=== PATIENT | female | born 1965 | race Caucasian/White ===

== ENCOUNTER → 2021-05-01 16:08 | Outpatient (CLI) | payer OTHER, SELFPAY ==
--- NOTE | ~2021-05-01 | MM_ITS ---
EXAMINATION: MM screening cordell BI w marco antonio HISTORY: Screening mammogram TECHNIQUE: Craniocaudal and mediolateral oblique 3-D tomosynthesis images were obtained and synthetic 2-D images were generated. CAD analysis was submitted and interpreted. COMPARISON: No prior mammogram is available for comparison at this institution. BREAST PARENCHYMAL COMPOSITION: The breasts are heterogeneously dense, which may obscure small masses . FINDINGS: There are indeterminate microcalcifications of the right breast. Diagnostic right mammogram is recommended with magnification views. No suspicious mass or architectural distortion is evident. No skin thickening or retraction. There ar e occasional benign calcifications on the left. IMPRESSION: 1. Multiple indeterminate microcalcifications of right breast 2. Diagnostic right mammogram with magnification views is recommended, with ultrasound if required BI-RADS Category 0: Incomplete: Needs additional imaging evaluation. Reviewed, dictated and finalized at location A. IMPRESSION: 1. Multiple indeterminate microcalcifications of right breast 2. Diagnostic right mammogram with magnification views is recommended, with ult rasound if required BI-RADS Category 0: Incomplete: Needs additional imaging evaluation.
== END ==
PROVIDERS: PCP Student in an Organized Health Care Education/Training Program; Visit Provider Student in an Organized Health Care Education/Training Program
DX: Z12.31 Encounter for screening mammogram for malignant neoplasm of breast (principal); R92.8 Other abnormal and inconclusive findings on diagnostic imaging of breast
CPT/HCPCS: 77063; 77067

== ENCOUNTER 2021-05-12 14:27 | Outpatient (CLI) | payer OTHER, SELFPAY ==
--- NOTE | ~2021-05-12 | MMUS_ITS ---
EXAMINATION: MM diagnostic mammo unilat RT, US breast RT complete HISTORY: New indeterminate right breast microcalcifications noted on 05/01/2021 screening mammogram TECHNIQUE: Additional ML view of right breast and magnification views of the right breast in ML, MLO and craniocaudal projections. CAD analysis was submitted and interpreted. High resolution complete [facility] breast ultrasound was performed. COMPARISON: 05/01/2021 bilateral digital screening mammogram FINDINGS: MAMMOGRAPHIC FINDINGS: There is an at least 2.3 cm linear array of granular appearing microcalcifications extending cephalad from the medial subareolar region. Stereotactic biopsy is recommended. Another linear array of microcalcifications is noted in the posterior outer right breast. Stereotacti c biopsy is recommended. ULTRASOUND: 9:00 8 cm from nipple: There is an irregular antiparallel approximately 7 mm wide up to 8.5 mm deep h ypoechoic area with prominent posterior shadowing, suspicious for malignancy. Ultrasound-guided biops y is recommended. There is dense fibroglandular tissue with shadowing at 10:00 7 cm and 8.5 cm from the nipple without discrete identifiable mass. Dense fibroglandular tissue is noted in this area on the current and prio r mammograms. IMPRESSION: 1. Suspicious linear arrays of microcalcifications in the (A) medial subareolar area, extending into the inner aspect of the upper inner quadrant of the right breast and (B) posterior upper outer right breast. Stereotactic biopsy of these 2 areas is recommended. 2. Irregular shadowing approximately 7 x 8.5 mm anti-parallel mass at 10:00 7 cm from nipple Ultraso und guided biopsy is recommended. BI-RADS category 4, suspicious findings. Reviewed, dictated and finalized at location A. IMPRESSION: 1. Suspicious linear arrays of microcalcifications in the (A) medial subareolar area, extending into the inner aspect of the upper inner quadrant of the right breast and (B) posterior upper outer right breast. Stereotactic biopsy of the se 2 areas is recommended. 2. Irregular shadowing approximately 7 x 8.5 mm anti-parallel mass at 10:00 7 c m from nipple Ultrasound guided biopsy is recommended. BI-RADS category 4, suspicious findings.
== END 2021-05-12 14:28 ==
LOC: MICIMG 14:28
PROVIDERS: PCP Student in an Organized Health Care Education/Training Program; Visit Provider Student in an Organized Health Care Education/Training Program
DX: R92.8 Other abnormal and inconclusive findings on diagnostic imaging of breast (principal)
CPT/HCPCS: 76641; 77065

== ENCOUNTER 2023-08-13 23:01 | Emergency (ER) | payer BC, SELFPAY ==
[2023-08-13 23:09] VITALS: BP 133/75; PULSE 77; RESP 18; TEMP 36; O2SAT 97
--- NOTE | 2023-08-13 23:40 | ED.WOUNDLAC ---
HPI - Wound/Laceration General Chief Complaint: Wound/Laceration Stated Complaint: ear laceration Time Seen by Provider: 08/13/23 23:26 Source: patient Mode of arrival: ambulatory Limitations: no limitations History of Present Illness HPI narrative: This is a 58-year-old female that presents to the emergency department after a fall today with lacerations to her right ear and elbow. Reports slipping and falling and hitting her head on a door frame. Reports landing on her right elbow. She did not lose consciousness. He denies any vision changes, vomiting or numbness. Her last tetanus vaccine was within 5 years. She is not on anticoagulation. Related Data Allergies Allergy/AdvReac Type Severity Reaction Status Date / Time NKDA Allergy Unknown Other Uncoded 08/13/23 23:01 Review of Systems Review of Systems: CONSTITUTIONAL: Denies fever EYES: Denies visual changes GASTROINTESTINAL: Denies vomiting SKIN: Reports laceration NEUROLOGIC: Denies headache, numbness, or weakness. All systems reviewed & are unremarkable except as noted in HPI and below PMFSH Past Medical History Medical History (Updated 08/14/23 @ 01:30 by Gabby Gomes PA-C) History of basal cell carcinoma Social History Social History (Updated 08/14/23 @ 01:30 by Gabby Gomes PA-C) Substance use: never Exam Narrative: GENERAL: Well-appearing, well-nourished, and in no acute distress. HEAD: Normocephalic. 1cm linear laceration into subcutaneous tissue to the right external ear EYES: PERRLA and EOMI. ENT: Nares clear, no rhinorrhea or epistaxis. Mucous membranes moist. Oropharynx without tonsillar hypertrophy exudate or other lesions. Bilateral TMs pearly browne non-bulging NECK: Supple. No adenopathy or masses. No midline spinal tenderness CHEST: Clear to auscultation. No respiratory distress. No wheezes rales or rhonchi HEART: Regular rate and rhythm. No murmur heard. Normal peripheral pulses. EXTREMITIES: Normal range of motion. No edema or obvious deformity. Strength equal in bilateral upper and lower extremities (5/5). 2cm flap laceration to the right elbow into subcutaneous tissue SKIN: Warm, dry, no rash. NEURO: No focal deficits. Alert and oriented x3. Cranial nerves II through XII grossly intact PSYCH: Normal mood and affect Course Course Emergency Course: Patient was educated on wound care Vital Signs Vital signs: Vital Signs Temperature 96.8 F L 08/13/23 23:09 Pulse Rate 77 08/13/23 23:09 Respiratory Rate 18 08/13/23 23:09 Blood Pressure 133/75 08/13/23 23:09 Pulse Oximetry 97 08/13/23 23:09 Oxygen Delivery Room Air 08/13/23 23:09 Temperature 96.8 F L 08/13/23 23:09 Pulse Rate 77 08/13/23 23:09 Respiratory Rate 18 08/13/23 23:09 Blood Pressure 133/75 08/13/23 23:09 Pulse Oximetry 97 08/13/23 23:09 Oxygen Delivery Room Air 08/13/23 23:09 MDM - Wound/Laceration MDM Narrative Medical decision making narrative: Patient presents to the emergency department after a fall today with lacerations of her right ear and elbow. She is neurologically intact. She denies any vision changes, vomiting or numbness. She is not on any anticoagulation. Her lacerations were cleansed and closed with sutures. She was educated on wound care. She is up-to-date on tetanus. She is to follow-up with primary provider and I will also give her follow-up with ENT for the laceration of her external ear. She was given warnings to return to the ER Differential Diagnosis Differential diagnosis: Likely laceration, abrasion and other (Head injury, concussion) Critical Care Time Critical Care Time Critical Care Time: No Discharge Plan Discharge Clinical Impression: Laceration Fall Qualifiers: Encounter type: initial encounter Qualified Code(s): W19.XXXA - Unspecified fall, initial encounter Head injury Qualifiers: Encounter type: initial encounter Qualified Code(s): S09.90XA - Unspecified
[2023-08-14] MEDS: LIDOCAINE HCL 1% LOCAL INJ 10 ML VIAL 20 ML INFILTRATE (00:19)
== END 2023-08-14 01:35 | disposition home or self-care (01) ==
PROVIDERS: Emergency Provider Physician Assistant; PCP Student in an Organized Health Care Education/Training Program
DX: S01.311A Laceration without foreign body of right ear, initial encounter (principal); S51.011A Laceration without foreign body of right elbow, initial encounter; Z85.828 Personal history of other malignant neoplasm of skin; W01.198A Fall on same level from slipping, tripping and stumbling with subsequent striking against other object, initial encounter
CPT/HCPCS: 12001; 12011; 99282

== ENCOUNTER 2024-10-27 07:25 | Outpatient (CLI) | payer BC, SELFPAY ==
--- NOTE | ~2024-10-27 | US_ITS ---
EXAMINATION: US abdomen limited DATE: 10/27/2024 07:53 INDICATION: Left upper quadrant abdominal pain. TECHNIQUE: Multiple grayscale and Doppler ultrasound images of the abdomen were obtained. COMPARISON: None FINDINGS: The spleen is normal in size. The left kidney is normal in size. No left hydronephrosis. IMPRESSION: 1. Normal spleen and left kidney. Reviewed, dictated and finalized at location A. [employer]
== END 2024-10-27 07:26 | disposition home or self-care (01) ==
LOC: MICIMG 07:27
PROVIDERS: PCP Student in an Organized Health Care Education/Training Program; Visit Provider Student in an Organized Health Care Education/Training Program
DX: R10.12 Left upper quadrant pain (principal)
CPT/HCPCS: 76705

== ENCOUNTER 2025-07-25 16:28 | Emergency (ER) | payer BC, SELFPAY ==
--- OUTSIDE RECORDS SUMMARY | 2025-07-24 08:15 | XMS_ITS | Encounter Summary ---
Author Organization [facility] Healthcare Address [address] [place] [address] Care Team Providers Care Clinical Research Associate Name Role Phone Keshav Spears DO Primary Care Provide r Keshav Spears DO Unavailable [phone] Felix Simmons MD Unavailable [phone] Reason for Visit * Episode Based Medications (Routine) - Authorized Specialty Diagnoses / Procedures Referred By Contjoleen t Referred To Contact Diagnoses Pancreatic adenocarcinoma (HCC) Prophylaxis for chemotherapy-induced neutropenia Felix Simmons MD [address] [place] [address] Phone: tel: fax: Felix Simmons MD [address] [place] [address] Phone: tel: fax: Referral ID Status Reason Start Date Expiration Date V isits Requested Visits Authorized [id number] Authorized 02/06/2025 11/09/2025 1 72 Encounter Details Date Type Department Care Team (Latest Contact Info) Description 07/24/2025 8:15 AM CDT Clinical Support [facility] - Lab Collection [address] [facility] [address] [place] [address] Pancreatic adenocarcinoma (HCC); Prophylaxis for chemotherapy-induced neutropenia Social History Tobacco Use Types Packs/Day Years Used Date Smoking Tobacco: Never Alcohol Use Standard Drinks/Week Comments Yes 2 (1 standard drink = 0.6 oz pur e alcohol) socially AUDIT-C Answer Date Recorded Q1: How often do you have a drink containing alc ohol? 2-3 times a week 07/11/2025 Q2: How many drinks containi ng alcohol do you have on a typical day when you are drinking? 1 or 2 07/11/2025 Frequency of Binge Drinking Not on file 06/22 Personal Safety Answer Date Recorded Have you ever been in or are you currently in a harmful physical or emotional relationship or is someone making you feel afraid or unsafe? 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 Gender Identity Not on file Sexual Orientation Not on file documented as of this encounter Plan of Treatment Not on file documented as of this encounter Procedures Procedure Name Priority Date/Time Associated Diagnosis Comments EGFR STAT 07/24/2025 8:39 AM CDT Pancreatic adenocarcinoma (HCC) Prophylaxis for chemotherapy-induced neutropenia DIFFERENTIAL AUTO Routine 07/24/2025 8:3 9 AM CDT Pancreatic adenocarcinoma (HCC) Prophylaxis for chemotherapy-induced neutropenia CBC WITH AUTO DIFFERENTIAL Routine 07/24/2025 8:39 AM CDT Pancreatic adenocarcinoma (HCC) Prophylaxis for chemotherapy-induced neutropenia CANCER ANTIGEN 19-9 Routine 07/24/2025 8 :39 AM CDT Pancreatic adenocarcinoma (HCC) Prophylaxis for chemotherapy-induced neutropenia COMPREHENSIVE METABOLIC PANEL STAT 07/24/2025 8:39 AM CDT Pancreatic adenocarcinoma (HCC) Prophylaxis for chemotherapy-induced neutropenia documented in this encounter Results * eGFR (07/24/2025 8:39 AM CDT) eGFR >90 >=60 mL/min/1. 73 m2 Comment: Interpretive Data Reference Interval Normal >/= 90 mL/min/1.73m2 Mildly decreased* 60 - 89 mL/min/1.73m2 Mildly to moderately decreased 45 - 59 mL/min/1.73m2 Moderately to severely decreased 30 - 44 mL/min/1.73m2 Severely decreased 15 - 29 mL/min/1.73m2 Kidney Failure < 15 mL/min/1.73m2 *Relative to young adult level Estimated glomerular filtration rate is determined by the 2020 CKD-EPI equation recommended by the National Kidney Foundation (A Unifying Approach to GFR Estimation: Recommendations of the NKF-ASK Task Force on Reassessing the Inclusion of Race in Diagnosing Kidney Disease, JASN 2020). The CKD-EPI equation should not be used for patients with unstable renal function and has not been validated in children and those over 70. Current interpretive data was last reviewed 2021. Blood 07/24/2025 8:39 AM CDT 07/24/2025 8:42 AM CDT Felix Simmons MD LAB BLOOD ORDERABLES Final Result [facility] [place] [address] * Differential, auto (07/24/2025 8:39 AM CDT) Neutrophil abs 4.53 1.50 - 6.50 K/cumm Comment:Testing performed by : [facility], [address] [place], [place] [phone] Lymphocyte abs 1.89 0.80 - 3.30 K/cumm [facility] Comment:Testing performed by : [facility], [address] [place] [address] Monocyte abs 0.79 0.20 - 0.80 K/cumm [facility] Comment:Testing performed by : [facility], [address] [place] [address] Eosinophil abs 0.13 0.00 - 0.50 K/cumm [facility] Comment:Testing performed by : [facility], [address] [place] [phone] Basophil abs 0.07 0.00 - 0.10 K/cumm [facility] Comment:Testing performed by : [facility], [address] [place] [phone] Neutrophil pct 61.1 % [facility] Comment: Interpretive Data Percent cell count reference ranges are not reported, since discordance with absolute values may lead to misinterpretation of CBC data. Current Interpretive Data was last revised on 2018. Testing performed by: [facility], [address] [place] [phone] Lymphocyte pct 25.5 % [facility] Comment: Interpretive Data Percent cell count reference ranges are not reported, since discordance with absolute values may lead to misinterpretation of CBC data. Current Interpretive Data was last revised on 2018. Testing performed by: [facility], [address] [place] [phone] Monocyte pct 10.6 % [facility] Comment: Interpretive Data Percent cell count reference ranges are not reported, since discordance with absolute values may lead to misinterpretation of CBC data. Current Interpretive Data was last revised on 2018. Testing performed by: [facility], [address] [place] [phone] Eosinophil pct 1.8 % [facility] Comment: Interpretive Data Percent cell count reference ranges are not reported, since discordance with absolute values may lead to misinterpretation of CBC data. Current Interpretive Data was last revised on 2018. Testing performed by: [facility], [address] [place] [phone] Basophil pct 0.9 % [facility] Comment: Interpretive Data Percent cell count reference ranges are not reported, since discordance with absolute values may lead to misinterpretation of CBC data. Current Interpretive Data was last revised on 2018. Testing performed by: [facility], [address] [place] [phone] Blood 07/24/2025 8:39 AM CDT 07/24/2025 8:41 AM CDT us Felix Simmons MD LAB BLOOD ORDERABLES Final Result Performing Organization Address City/[facility] Co de Phone Number [facility] [place] [address] * (ABNORMAL) Cancer antigen 19-9 (07/24/2025 8:39 AM CDT) CA 19-9 ag 39.1(H) <=35.0 units/mL Comment: Interpretive Data The [employer] CA 19-9 assay procedure was used. Results from different manufacturers or methods may not be comparable. Serial testing should be performed using the same method. Blood 07/24/2025 8:39 AM CDT 07/24/2025 9:00 AM CDT Felix Simmons MD LAB BLOOD ORDERABLES Final Result Performing Organization Address [facility] [place] [facility] Co de Phone Number [facility] [place] [address] * (ABNORMAL) CBC with auto differential (07/24/2025 8:39 AM CDT) WBC 7.41 3.80 - 9.90 K/cumm Comment:Testing performed by : [facility], [address] [place] [address] Hgb 11.7(L) 11.9 - 15.5 g/dL [facility] Comment:Testing performed by : [facility], [address] [place] [address] Hct 34.5(L) 35.6 - 45.5 % [facility] Comment:Testing performed by : [facility], [address] [place] [address] Plt 370 150 - 400 K/cumm [facility] Comment:Testing performed by : [facility], [address] [place] [address] MPV 6.9 6.8 - 10.4 fL [facility] Comment:Testing performed by : [facility], [address] [place] [address] RBC 3.91 3.90 - 5.20 M/cumm [facility] Comment:Testing performed by : [facility], [address] [place] [address] MCV 88.2 81.3 - 96.4 fL [facility] Comment:Testing performed by : [facility], [address] [place], [place] [phone] MCH 30.0 27.1 - 33.3 pg [facility] Comment:Testing performed by : [facility], [address] [place] [address] MCHC 34.0 32.3 - 35.7 g/dL [facility] Comment:Testing performed by : [facility], [address] [place] [address] RDW CV 18.3(H) 11.1 - 14.9 % [facility] Comment:Testing performed by : [facility], [address] [place] [address] NRBC abs 0.00 0.00 - 0.01 K/cumm [facility] Comment:Testing performed by : [facility], [address] [place] [address] Blood 07/24/2025 8:39 AM CDT 07/24/2025 8:41 AM CDT Felix Simmons MD LAB BLOOD ORDERABLES Final Result [facility] [place] [address] * Comprehensive metabolic panel (07/24/2025 8:39 AM CDT) Sodium 139 135 - 145 mmol/L Potassium, pl 4.2 3.3 - 4.9 mmol/L [facility] Chloride 103 97 - 110 mmol/L [facility] CO2 27 22 - 32 mmol/L [facility] Anion gap 9 2 - 15 mmol/L [facility] BUN 15 6 - 25 mg/dL [facility] Creatinine 0.66 0.60 - 1.10 mg/dL [facility] Glucose 109 70 - 199 mg/dL [facility] Comment: Interpretive Data Fasting glucose >/= 126 mg/dl is diagnostic for diabetes. Fasting is defined as no caloric intake for at least 8 hours. Fasting glucose between 100 mg/dl to 125 mg/dl is diagnostic of prediabetes. In a patient with classic symptoms of hyperglycemia or hyperglycemic crisis, a random glucose >/= 200 mg/dl is diagnostic for diabetes. In the absence of unequivocal hyperglycemia, results should be confirmed by repeat testing. The classification and Diagnosis of Diabetes Diabetes Care 2021; 46: S19-S40. Current interpretive data was last revised 2022. Calcium 9.5 8.5 - 10.3 mg/dL [facility] Bilirubin, total 0.5 0.1 - 1.2 mg/dL [facility] Protein, pl 7.0 6.5 - 8.5 g/dL [facility] Albumin 3.9 3.5 - 5.0 g/dL [facility] Alk phos 90 40 - 130 Units/L [facility] ALT 26 7 - 45 Units/L [facility] AST 22 10 - 45 Units/L [facility] Blood 07/24/2025 8:39 AM CDT 07/24/2025 8:42 AM CDT Felix Simmons MD LAB BLOOD ORDERABLES Final Result Performing Organization Address City/State/[facility] Co de Phone Number [facility] [place] [address] documented in this encounter Visit Diagnoses Diagnosis Pancreatic adenocarcinoma (HCC) Malignant neoplasm of pancreas, part unspecified Prophylaxis for chemotherapy-induced neutropenia documented in this encounter Orders Appointment Requests Count Last Ordered Date Fi rst Ordered Date ONCBCN LAB APPOINTMENT 1 07/24/2025 documented in this encounter Care Teams Clinical Research Associate Relationship Specialty Start Date End Date Keshav Spears DO [address] [place] [id number] PCP - General Family Medicine 11/01/24 Keshav Spears DO [address] [place] [address] 10/31/24 Felix Simmons MD [address] [facility] [address] [place] [address] Consulting Physician Medical Oncology 11/28/24 documented as of this encounter
--- OUTSIDE RECORDS SUMMARY | 2025-07-24 09:20 | XMS_ITS | Encounter Summary ---
Author Organization [facility] Address [address] [place] [address] Phone Care Team Providers Care Program Coordinator For Residence Life Name Role Phone Keshav Spears DO Primary Care Provide r Keshav Spears DO Unavailable Felix Simmons MD Unavailable Encounter Details Date Type Department Care Team (Latest Contact Info) Description 07/24/2025 9:20 AM CDT Office Visit [facility] Medicine Oncology [address] 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 Gender Identity Not on file Sexual Orientation Not on file documented as of this encounter Last Filed Vital Signs Vital Sign Reading Time Taken Comments Blood Pressure 120/78 07/24/2025 9:08 AM CDT Pulse 68 07/24/2025 9:08 AM CDT Temperature 36.1 C (96.9 F) 07/24/2025 9:08 AM CDT Respiratory Rate 14 07/24/2025 9:08 AM CDT Oxygen Saturation 98% 07/24/2025 9:08 AM CDT Inhaled Oxygen Concentration - - Weight 78.1 kg (172 lb 3.2 oz) 07/24/2025 9:08 A M CDT Height - - Body Mass Index 26.97 07/11/2025 8:54 AM CDT documented in this encounter Plan of Treatment Scheduled Orders Name Type Priority Associated Diagnoses Orde r Schedule CBC with auto differential Lab Routine Pancreatic adenocarcinoma (HCC) Prophylaxis for chemotherapy-induced neutropenia Expected: 08/07/2025, Expires: 08/07/2026 Comprehensive metabolic panel Lab STAT Pancreatic adenocarcinoma (HCC) Prophylaxis for chemotherapy-induced neutropenia Expected: 08/07/2025, Expires: 08/07/2026 documented as of this encounter Visit Diagnoses Diagnosis Pancreatic adenocarcinoma (HCC)- Primary Malignant neoplasm of pancreas, part unspecified Prophylaxis for chemotherapy-induced neutropenia documented in this encounter Orders Appointment Requests Count Last Ordered Date Fi rst Ordered Date ONCBCN CLINIC APPOINTMENT REQUEST 2 025 ONCBCN LAB APPOINTMENT 1 07/24/2025 ONCBCN RETURN CHEMO 2HRS 1 07/24/2025 documented in this encounter Care Teams Program Coordinator For Residence Life Relationship Specialty Start Date End Date Keshav Spears DO [address] [place] [id number] PCP - General Family Medicine 11/01/24 Keshav Spears DO [address] [place] [address] 10/31/24 Felix Simmons MD [address] [place] [address] Consulting Physician Medical Oncology 11/28/24 documented as of this encounter
--- OUTSIDE RECORDS SUMMARY | 2025-07-24 10:30 | XMS_ITS | Encounter Summary ---
Author Organization [facility] Healthcare Address [address] [place] [address] Care Team Providers Care Assembler Aircraft Power Plant Name Role Phone Keshav Spears DO Primary Care Provide r Keshav Spears DO Unavailable [phone] Felix Simmons MD Unavailable [phone] Reason for Visit * Episode Based Medications (Routine) - Authorized Specialty Diagnoses / Procedures Referred By Contjoleen t Referred To Contact Diagnoses Pancreatic adenocarcinoma (HCC) Prophylaxis for chemotherapy-induced neutropenia Felix Simmons MD [address] [place] [address] Phone: tel: fax: Felix Simmons MD [address] [place] [address] Phone: tel: fax: Referral ID Status Reason Start Date Expiration Date V isits Requested Visits Authorized [id number] Authorized 02/06/2025 11/09/2025 1 72 Encounter Details Date Type Department Care Team (Late st Contact Info) Description 07/24/2025 10:30 AM CDT Infusion [facility] - Infusion [address] [facility] [address] [place] [address] Pancreatic adenocarcinoma (HCC) (Primary Dx); Prophylaxis for [...] on file Legal Sex Female 1:13 PM VP DESIGN Gender Identity Not on file Sexual Orientation Not on file documented as of this encounter Nursing Notes * Kaley Barry RN - 07/24/2025 10:30 AM CDT Oncology Nursing Note [facility] - INFUSION Edy Tang is a 60 y.o. female who presents for treatment cycle 6, day 1 of gemcitabine/abraxane. Pre-treatment Nursing Assessment Nursing Assessment LOC: Alert, Awake Fatigue: None Any falls since your last visit?: No Orientation: Oriented x4 Behavior: Calm Speech: Clear Language: No aphasia Vision: At baseline Peripheral Neuropathy: Yes (unchanged) Oral Mucosa Grade: Normal (0) Pt states has potential to be ?: No Shortness of Breath?: No Cough: Absent Appetite: Good Nausea/Vomiting: Yes Abdomen: Soft Diarrhea: No Constipation: No Last BM Date: 07/23/25 Skin Condition/Temp: Warm, Dry Swelling: No Additional Notes: Encounter Vitals BP: 120/78 (07/24/2025 9:08 AM) Pulse: 68 (07/24/2025 9:08 AM) Resp: 14 (07/24/2025 9:08 AM) Temp: 36.1 ??C (96.9 ??F) (07/24/2025 9:08 AM) SpO2: 98 % (07/24/2025 9:08 AM) Weight: 78.1 kg (172 lb 3.2 oz) (07/24/2025 9:08 AM) Pain Score: 0 - No pain Treatment Patient: met treatment parameters Pre blood return: Chema Tang tolerated treatment well. Patient was frequently observed and monitored throughout the administration of their treatment. Additional Notes: NO infusion reaction noted. Port de-accessed. Discharged in stable condition Post blood return: Brisk IV access post infusion: NS Patient Education Treatment Education: Information/teaching given to patient including fall prevention, pain, signs and symptoms of infection, adverse reaction, symptom management, process and procedure related to today's visit, and when to notify MD Response: Verbalizes understanding Discharge Plan Discharge instructions given to patient. Future appointments given and reviewed with treatment plan. Discharge Mode: Ambulatory Accompanied by: Self Discharged To: Home documented in this encounter Plan of Treatment Not on file documented as of this encounter Visit Diagnoses Diagnosis Pancreatic adenocarcinoma (HCC)- Primary Malignant neoplasm of pancreas, part unspecified Prophylaxis for chemotherapy-induced neutropenia documented in this encounter Administered Medications Inactive Administered Medications - up to 3 most recent administrations Medication Order MAR Action Action Date Dose Rate Site albumin-bound PACLItaxel (ABRAXANE) 5 mg/mL IVPB in empty container 245 mg 245 mg (rounded from 243.75 mg = 125 mg/m2 1.95 m2 Treatment Plan BSA from Recorded weight), intravenous, at 98 mL/hr, Administer over 30 Minutes, Once, On Tue07/24/25 at 1230, For 1 dose, Irritant. Do NOT use a filter during administration. Irritant with vesicant propertiesIndications:Panc reatic adenocarcinoma (HCC),Prophylaxis for chemotherapy-induced neutropenia New Bag 07/24/2025 1:24 PM CDT 245 mg 98 mL/hr dexAMETHasone (DECADRON) preservative free solution 10 mg 10 mg, intravenous, Administer over 2 Minutes, Once, On Tue07/24/25 at 1200, For 1 doseIndications:Pancreatic adenocarcinoma (HCC),Prophylaxis for chemotherapy-induced neutropenia Given 07/24/2025 11:51 AM CDT 10 mg gemcitabine (GEMZAR - J9201) 1,950 mg in sodium chloride 0.9% 250 mL IVPB 1,950 mg (1,000 mg/m2 1.95 m2 Treatment Plan BSA from Recorded weight), intravenous, at 653 mL/hr, Administer over 30 Minutes, Once, On Tue07/24/25 at 1300, For 1 doseIndications:Pancreatic adenocarcinoma (HCC),Prophylaxis for chemotherapy-induced neutropenia New Bag 07/24/2025 2:10 PM CDT 1,950 mg 653 mL/hr ondansetron (ZOFRAN) 16 mg/58 mL in sodium chloride 0.9% (premix) 16 mg 16 mg, intravenous, at 232 mL/hr, Administer over 15 Minutes, Once, On Tue07/24/25 at 1200, For 1 doseIndications:Pancreatic adenocarcinoma (HCC),Prophylaxis for chemotherapy-induced neutropenia New Bag 07/24/2025 12:03 PM CDT 16 mg 232 mL/hr sodium chloride 0.9% bolus 1,000 mL 1,000 mL, intravenous, at 999 mL/hr, Administer over 1 Hours, Once, On Tue07/24/25 at 1200, For 1 dose, May insert peripheral IV (see IV maintenance therapy plan) to administer NS concurrently with chemo if necessaryIndications:Pancr eatic adenocarcinoma (HCC),Prophylaxis for chemotherapy-induced neutropenia New Bag 07/24/2025 12:19 PM CDT 1,000 mL 999 mL/hr sodium chloride 0.9% infusion 20 mL/hr, intravenous, As needed, As needed as back up fluid for infusions, Starting on Tue07/24/25 at 1111Indications:Pancreatic adenocarcinoma (HCC) Rate/Dose Change 07/24/2025 2:41 PM CDT 653 mL/hr Rate/Dose Change 07/24/2025 1:55 PM CDT 98 mL/h r Restarted 07/24/2025 12:02 PM CDT 20 mL/hr documented in this encounter Orders Nursing Count Last Ordered Date First Orde red Date ONCBCN TREATMENT PARAMETERS 1 07/24/2025 Appointment Requests Count Last Ordered Date Fi rst Ordered Date ONCBCN RETURN CHEMO 2HRS 1 07/24/2025 documented in this encounter Care Teams Assembler Aircraft Power Plant Relationship Specialty Start Date End Date Keshav Spears DO [address] [place] [address] [id number] PCP - General Family Medicine 11/01/24 Keshav Spears DO [address] [place] [address] 10/31/24 Felix Simmons MD [address] [facility] [address] [place] [address] Consulting Physician Medical Oncology 11/28/24 documented as of this encounter
--- NOTE | ~2025-07-25 | XR_ITS ---
XR toe 2nd LT min 2V 07/25/2025 16:54 INDICATION: Left second toe pain after trauma PROCEDURE: 3 views left second toe COMPARISON: No prior studies for comparison. FINDINGS: Fracture, dislocation or subluxation is not identified. Study performed with overlying gauze limiting evaluation of bone detail. The soft tissues appear within normal limits. No foreign bodies are identified. IMPRESSION: 1: NO ACUTE BONE OR JOINT ABNORMALITY IDENTIFIED. Reviewed, dictated and finalized at location O.
[2025-07-25 16:32] VITALS: BP 122/63; PULSE 68; RESP 15; TEMP 36.4; O2SAT 100
--- NOTE | 2025-07-25 16:47 | ED.GENADULT ---
HPI - General Adult General Chief complaint: Wound/Laceration Stated complaint: L 2nd toe lac Time Seen by Provider: 07/25/25 16:30 History of Present Illness HPI narrative: 60-year-old female presenting with a toe injury. She dropped a note for and on the 2nd toe of her left foot. She has had significant bleeding on site but is now controlled. Tetanus is up-to-date. No other injuries. Related Data Allergies Allergy/AdvReac Type Severity Reaction Status Date / Time irinotecan Allergy Swelling Verified 07/25/25 16:40 of Lip/Tongue/Throat PMFSH Past Medical History Medical History (Updated 07/25/25 @ 17:39 by Anthony Berg MD) History of basal cell carcinoma Social History Social History (Updated 08/14/23 @ 01:30 by Gabby Gomes PA-C) Substance use: never Exam Narrative: APPEARANCE: No apparent distress. Head: atraumatic. EYES: EOMI, NOSE: Atraumatic NECK: Trachea midline RESPIRATORY: No increased rate of breathing clear CARDIOVASCULAR: RRR, ABDOMINAL: Non-distended MUSCULOSKELETAl: Focal exam of the left 2nd toe revealed a flap laceration over the distal lateral portion of the toe involving the nail bed NEURO: Alert. Moving 4/4 extremities SKIN:: Warm, dry. Normal color PSYCHIATRIC: Normal affect Course Vital Signs Vital signs: Vital Signs Temperature 97.5 F L 07/25/25 16:32 Pulse Rate 68 07/25/25 16:32 Respiratory Rate 15 07/25/25 16:32 Blood Pressure 122/63 07/25/25 16:32 Pulse Oximetry 100 07/25/25 16:32 Oxygen Delivery Room Air 07/25/25 16:32 Temperature 97.5 F L 07/25/25 16:32 Pulse Rate 68 07/25/25 16:32 Respiratory Rate 15 07/25/25 16:32 Blood Pressure 122/63 07/25/25 16:32 Pulse Oximetry 100 07/25/25 16:32 Oxygen Delivery Room Air 07/25/25 16:32 Procedures Laceration Laceration 1: Date: 07/25/25 Site: lower extremity Side (If applicable): left Size (cm): 1.5 Description: flap Depth: simple, single layer Amount of anesthesia used (mL): 5 Pre-repair: wound explored and irrigated extensively ====== Skin Level ====== Skin layer closed with: dermabond ====== Subcutaneous Layer ====== ====== Muscle Layer ====== ====== Tendon Layer ====== Medical Decision Making MDM Narrative Medical decision making narrative: -Course: 60-year-old female presenting with toe injury. X-ray negative fracture. Wound was anesthetized with a nerve block and then flushed with copious amounts of irrigation. Repaired with Dermabond. Patient be discharged with primary care follow-up. -DDX includes but is not limited to: Soft tissue injury, bony injury Vital Signs Vital Signs: Vital Signs Temperature 97.5 F L 07/25/25 16:32 Pulse Rate 68 07/25/25 16:32 Respiratory Rate 15 07/25/25 16:32 Blood Pressure 122/63 07/25/25 16:32 Pulse Oximetry 100 07/25/25 16:32 Oxygen Delivery Room Air 07/25/25 16:32 Temperature 97.5 F L 07/25/25 16:32 Pulse Rate 68 07/25/25 16:32 Respiratory Rate 15 07/25/25 16:32 Blood Pressure 122/63 07/25/25 16:32 Pulse Oximetry 100 07/25/25 16:32 Oxygen Delivery Room Air 07/25/25 16:32 Discharge Plan Discharge Clinical Impression: Laceration Patient Disposition: Home Condition: Stable Instructions: Antibiotic Form, Laceration (ED) Additional Instructions: You were seen in the emergency department for a toe laceration. This was repaired with Dermabond. The Dermabond should come off on its own in 5-7 days. Please follow-up with your primary care physician for further management. If you develop signs of infection like severe pain, increased redness or purulent discharge please return to the ED for re-evaluation. Use [id number] Motrin Tylenol for pain control. Patient Language: Telugu Follow-up/Referrals: Regan,DO Keshav [Primary Care Provider] - 1 Week
--- OUTSIDE RECORDS SUMMARY | 2025-07-25 17:45 | XMS_ITS | Encounter Summary ---
Author Organization [facility] Address [address] [place] [address] Care Team Providers Care Tank Car Cleaner Name Role Phone Keshav Spears Primary Care Provider + Encounter Details Date Type Department Care Team (Late st Contact Info) Description 12/23/2022 [facility] Patient Accounts [address] [place] [address] Hannah, [facility] Provider Monthly Credit Card Payment Social History Tobacco Use Types Packs/Day Years Used Date Smoking Tobacco: Never Smokeless Tobacco: Never Alcohol Use Standard Drinks/Week Comments Yes 3.3 (1 standard drink = 0.6 oz p ure alcohol) AUDIT-C Answer Date Recorded Frequency of Alcohol Consumption 2-4 times a tue01/03/2020 Average Number of Drinks 1 or 2 020 Frequency of Binge Drinking Less than monthly PHQ-2 Answer Date Recorded PHQ-2 Score - If the patient scores above 3, please move on to questions 3-9 2 06/10/2022 Comments No Sex and Gender Information Value Date Recorded Sex Assigned at Female 10/24/2024 1:30 PM COMPUTER SUPPORT TECHNICIAN Legal Sex Female 12:10 PM COMPUTER SUPPORT TECHNICIAN Gender Identity Female 10/24/2024 1:30 PM COMPUTER SUPPORT TECHNICIAN Sexual Orientation Not on file Occupation Industry Job Start Date Job End Date Not on file Not on file Not on file Not on file documented as of this encounter Plan of Treatment Not on file documented as of this encounter Visit Diagnoses Not on filedocumented in this encounter Additional Health Concerns Infection Onset Date Last Indicated Resolved Time COVID-19 Rule Out 09/12/2024 09/12/2024 09/12/2024 2:47 PM CDT Assessment Noted Time PHQ-9 Depression Total Score: 7 01/03/20 20 8:40 AM COMPUTER SUPPORT TECHNICIAN documented as of this encounter Care Teams Tank Car Cleaner Relationship Specialty Start Date End Date Keshav Spears DO [address] [place] [id number] PCP - General FAMILY PRACTICE 12/11/19 documented as of this encounter
--- OUTSIDE RECORDS SUMMARY | 2025-07-25 17:45 | XMS_ITS | Encounter Summary ---
Author Organization [facility] Address [address] [place] [address] Care Team Providers Care Office Helper Clerical Name Role Phone Keshav Spears DO Primary Care Provider + Encounter Details Date Type Department Care Team (Late st Contact Info) Description 04/14/2023 [facility] Patient Accounts [address] [place] [address] Hannah, [facility] Provider Monthly Payment Plan Social History Tobacco Use Types Packs/Day Years [...] Sex Assigned at Female 10/24/2024 1:30 PM SLUSHER OPERATOR Legal Sex Female 12:10 PM SLUSHER OPERATOR Gender Identity Female 10/24/2024 1:30 PM SLUSHER OPERATOR Sexual Orientation Not on file Occupation Industry [...] Total Score: 7 01/03/20 20 8:40 AM SLUSHER OPERATOR documented as of this encounter Care Teams Office Helper Clerical Relationship Specialty Start Date End Date Keshav Spears DO [address] [place] [address] PCP - General FAMILY PRACTICE 12/11/19 documented as of this encounter
--- OUTSIDE RECORDS SUMMARY | 2025-07-25 17:45 | XMS_ITS | Encounter Summary ---
Author Organization [facility] Address [address] [facility] [place] [address] Care Team Providers Care Police Shift Commander Name Role Phone Keshav Spears DO Primary Care Provider + Encounter Details Date Type Department Care Team (Late st Contact Info) Description 06/02/2022 Lab Requisition [facility] Care DermPath Lab [address] [place] [id number] Malcolm Hughes MD [address] [place] [address] Social History Tobacco Use Types Packs/Day Years Used Date Smoking Tobacco: Never Smokeless Tobacco: Never Alcohol Use Standard Drinks/Week Comments No 0 (1 standard drink = 0.6 oz pur e alcohol) Comments No Sex and Gender Information Value Date Recorded Sex Assigned at Not on file Legal Sex Female 12:53 PM CDT Gender Identity Not on file Sexual Orientation Not on file documented as of this encounter Plan of Treatment Not on file documented as of this encounter Procedures Procedure Name Priority Date/Time Associated Diagnosis Comments DERMATOPATHOLOGY Routine 2022 3:33 AM CDT documented in this encounter Results * DERMATOPATHOLOGY (2022 3:33 AM CDT) Case Report Dermatopathology Report Case: [id number] Authorizing Provider: Malcolm Hughes MD Collected: 2022 03:33 AM Ordering Location: [facility] DermPath Lab Received: 06/02/2022 12:32 PM Pathologist: Becka Santos MD Specimens: A) - Skin, right bulb of nose B) - Skin, left nasal sidewall 2 12:15 PM T DERMATOPATHOLOGY LABORATORY Final Diagnosis Specimen A. SKIN, right bulb of nose: BASAL CELL CARCINOMA, NODULAR TYPE (C44.311) (see microscopic description) Specimen B. SKIN, left nasal sidewall: BASAL CELL CARCINOMA, NODULAR TYPE (C44.311) 2 12:15 PM T DERMATOPATHOLOGY LABORATORY at 1215 CDT Clinical History A: R/O BCC, Scarring vs. Other B: R/O BCC vs. Other Neoplasm 12:15 PM CDT DERMATOPATHOLOGY LABORATORY Gross Description Specimen A: Received is one formalin filled container labeled with the patient's name and designated right bulb of nose. The specimen consists of a punch biopsy measuring [id number]. Jar 0. Specimen B: Received is one formalin filled container labeled with the patient's name and designated left nasal sidewall. The specimen consists of a shave biopsy measuring [id number]. Jar 0. 2 12:15 PM [facility] DERMATOPATHOLOGY LABORATORY Microscopic Description Specimen A. SKIN, right bulb of nose: Within the dermis there are aggregates of basaloid cells with a high nuclear to cytoplasmic ratio and peripheral palisading. By immunohistochemistr y, CK20 highlights scattered intraepidermal Darrius cells, and does not reveal intratumoral Elbe cells. BerEp4 is positive in lesional cells. Additional deeper sections were obtained and reviewed. Specimen B. SKIN, left nasal sidewall: Within the dermis there are aggregates of basaloid cells with a high nuclear to cytoplasmic ratio and peripheral palisading. 2 12:15 PM T DERMATOPATHOLOGY LABORATORY Disclaimer An external and internal positive and negative controls are appropriate for the histochemical, immunohistochemical and immunofluorescence stain(s) in this case (if any), except where stated explicitly. The performance characteristics of the stain(s) cited in this report were developed and its performance characteristic determined by the Dermatopathology Laboratory at [facility], directed by Dr. Shmuel Espinoza. These tests need not be, and therefore are not, approved by the [place] Food and Drug Administration. The tests are used for clinical purposes. Billing Codes Specimen Charges Stain Charges 51434 33578 1 1 56605 50139 1 1 2 12:15 PM CDT DERMATOPATHOLOGY LABORATORY Embedded Images 2 12:15 PM CDT DERMATOPATHOLOGY LABORATORY Pathology/Cytology TISSUE SPECIMEN FROM SKIN / Unknown 2022 3:33 AM CDT 06/02/2022 12:32 PM CDT Miscellaneous samples (specimen) TISSUE SPECIMEN FROM SKIN / Unknown 2022 3:33 AM CDT 06/02/2022 12:32 PM CDT Malcolm Hughes MD LAB - PATHOLOGY/CYTOLOGY ORD ERABLES Final Result DERMATOPATHOLOGY LABORATORY [facility] - Department of Dermatology [facility] Specialized Medicine [address] [place] [address], [address] [phone] documented in this encounter Visit Diagnoses Not on filedocumented in this encounter Care Teams Police Shift Commander Relationship Specialty Start Date End Date Keshav Spears DO [address] [place] [address] PCP - General 05/04/21 documented as of this encounter
--- OUTSIDE RECORDS SUMMARY | 2025-07-25 17:45 | XMS_ITS | Encounter Summary ---
Author Organization [facility] Healthcare Address [address] [place] [address] Care Team Providers Care Housekeeper Cleaning Cooking Name Role Phone Keshav Spears DO Primary Care Provide r Keshav Spears DO Unavailable Felix Simmons MD Unavailable Encounter Details Date Type Department Care Team (Late st Contact Info) Description 05/29/2025 Documentation [facility] Radiation Oncology [address] [facility] [place] [address] Hollie Carver RN Social History Tobacco Use Types Packs/Day Years Used Date Smoking Tobacco: Never Alcohol Use Standard Drinks/Week Comments Yes 0 (1 standard drink = 0.6 oz pur e alcohol) socially AUDIT-C Answer Date Recorded Q1: How often do you have a drink containing alc ohol? 2-4 times a month 04/16/2025 Q2: How many drinks containi ng alcohol do you have on a typical day when you are drinking? 1 or 2 04/16/2025 Q3: How often do you have si x or more drinks on one occasion? Never 04/16/2025 Personal Safety Answer Date Recorded Have you ever been in or are you currently in a harmful physical or emotional relationship or is someone making you feel afraid or unsafe? Denies 03/08/2025 Comments No Sex and Gender Information Value Date Recorded Sex Assigned at Not on file Legal Sex Female 1:13 PM APARTMENT LEASING CONSULTANT Gender Identity Not on file Sexual Orientation Not on file documented as of this encounter Plan of Treatment Not on file documented as of this encounter Visit Diagnoses Not on filedocumented in this encounter Care Teams Housekeeper Cleaning Cooking Relationship Specialty Start Date End Date Keshav Spears DO [address] [place] [id number] PCP - General Family Medicine 11/01/24 Keshav Spears DO [address] [place] [id number] 10/31/24 Felix Simmons MD [address] [place] [address] Consulting Physician Medical Oncology 11/28/24 documented as of this encounter
--- OUTSIDE RECORDS SUMMARY | 2025-07-25 17:45 | XMS_ITS | Encounter Summary ---
Author Organization [facility] Address [address] [place] [address] Phone Care Team Providers Care Table Maker Name Role Phone Keshav Spears DO Primary Care Provide r Keshav Spears DO Unavailable Felix Simmons MD Unavailable [phone] Encounter Details Date Type Department Care Team (Late st Contact Info) Description 07/17/[address] [facility] Medicine Gastroenterology [address] [facility] Advanced Medicine 12th [place] [address] [place] [address] Juan Moreno MD [address] [facility] [address] [address] [place] [address] Helicobacter pylori gastritis (Primary Dx) Social History Tobacco Use Types Packs/Day Years [...] Frequency of Binge Drinking Not on file /11/2024 Personal Safety Answer Date Recorded Have you ever been in or are you currently in a harmful physical or emotional relationship or is someone making you feel afraid or unsafe? Denies 07/11/2025 Comments No Sex and Gender Information Value Date Recorded Sex Assigned at Not on file Legal Sex Female 1:13 PM AVIONICS ELECTRONICS TECHNICIAN Gender Identity Not on file Sexual Orientation Not on file documented as of this encounter Ordered Prescriptions Prescription Sig Dispense Quantity Refills Last Filled Start Date End Date omeprazole (PriLOSEC) 40 mg capsule Take 1 capsule (40 mg total) by mouth 2 (two) times a day 60 capsule 07/25/2025 tetracycline (ACHROMYCIN,SUMYCIN ) 500 mg capsuleIndications: Helicobacter pylori gastritis Take 1 capsule (500 mg total) by mouth 4 (four) times a day for 10 days 40 capsule 07/25/2025 5 metroNIDAZOLE (FLAGYL) 500 mg tabletIndications:H elicobacter pylori gastritis Take 1 tablet (500 mg total) by mouth 3 (three) times a day for 10 days 30 tablet 07/25/2025 5 bismuth subsalicylate 262 mg tablet,chewableIndi cations:Helicobacte r pylori gastritis Take 2 tablets (524 mg total) by mouth 4 (four) times a day before meals and nightly for 10 days 80 tablet 07/25/2025 5 bismuth subsalicylate 262 mg tablet,chewableIndi cations:Helicobacte r pylori gastritis Take 2 tablets (524 mg total) by mouth 4 (four) times a day before meals and nightly for 10 days 80 tablet 07/17/2025 5 tetracycline (ACHROMYCIN,SUMYCIN ) 500 mg capsuleIndications: Helicobacter pylori gastritis Take 1 capsule (500 mg total) by mouth 4 (four) times a day for 10 days 40 capsule 07/17/2025 5 metroNIDAZOLE (FLAGYL) 500 mg tabletIndications:H elicobacter pylori gastritis Take 1 tablet (500 mg total) by mouth 3 (three) times a day for 10 days 30 tablet 07/17/2025 5 documented in this encounter Miscellaneous Notes * Addendum Note - May, Adrianna Selena, RN - 07/17/2025 12:22 AM CDTAddended by: ADRIANNA WILSON on: 07/25/2025 08:22 AM Modules accepted: Orders documented in this encounter Plan of Treatment Not on file documented as of this encounter Visit Diagnoses Diagnosis Helicobacter pylori gastritis- Primary documented in this encounter Discontinued Medications Medication Sig Discontinue Reason Start Date End Da te omeprazole (PriLOSEC) 40 mg capsule Take 1 capsule (40 mg total) by mouth 2 (two) times a day Reorder 03/09/2025 07/25/2025 metroNIDAZOLE (FLAGYL) 500 mg tabletIndications:Helicob acter pylori gastritis Take 1 tablet (500 mg total) by mouth 3 (three) times a day for 10 days 07/17/2025 07/25/2025 tetracycline (ACHROMYCIN,SUMYCIN) 500 mg capsuleIndications:Helico bacter pylori gastritis Take 1 capsule (500 mg total) by mouth 4 (four) times a day for 10 days 07/17/2025 07/25/2025 bismuth subsalicylate 262 mg tablet,chewableIndication s:Helicobacter pylori gastritis Take 2 tablets (524 mg total) by mouth 4 (four) times a day before meals and nightly for 10 days 07/17/2025 07/25/2025 documented as of this encounter Care Teams Table Maker Relationship Specialty Start [place] [address] [place] [address] PCP - General Family Medicine 11/01/24 Keshav Spears DO [address] [place] [address] 10/31/24 Felix Simmons MD [address] [place] [address] Consulting Physician Medical Oncology 11/28/24 documented as of this encounter
--- OUTSIDE RECORDS SUMMARY | 2025-07-25 17:45 | XMS_ITS | Clinical Summary ---
Author Organization [facility] Address [address] [place] [address] Care Team Providers Care Flat Lock Operator Name Role Phone Keshav Spears DO Primary Care Provider + Source Comments [facility],non-owned Affiliates and Associated Physician Practices is amultiple site organization consisting of ambulatory clinics and hospital sitesin [place], [place], [place] and [place]. This disclosure is being madepursuant to the Care Everywhere program and may not contain all information available regarding this patient. Last updated 18.[facility] Allergies No known active allergies Medications * Be aware that medications may not be up to date on this document. Alwaysverify current medications with the patient. Escitalopram Oxalate (LEXAPRO PO) Active benzonatate (TESSALON) 200 MG capsuleIndicati ons:Viral URI with cough Take 1 capsule by mouth 3 times daily as needed for Cough 30 capsule 12/27/2017 Active Immunizations Immunization Administration Dates Next Due MMR 06/05/2018 Family History Medical History Relation Name Comments Cancer - Renal Father CVA Mother Relation Name Status Comments Father Mother Social History Tobacco Use Types Packs/Day Years Used Date Smoking Tobacco: Never Smokeless Tobacco: Never Alcohol Use Standard Drinks/Week Comments No 0 (1 standard drink = 0.6 oz pur e alcohol) Comments No Sex and Gender Information Value Date Recorded Sex Assigned at Not on file Legal Sex Female 12:53 PM CDT Gender Identity Not on file Sexual Orientation Not on file Last Filed Vital Signs Vital Sign Reading Time Taken Comments Blood Pressure 120/80 09/03/2021 10:34 AM CDT Pulse 61 02/22/2018 5:58 PM CDT Temperature 36.8 C (98.2 F) 09/03/2021 10:34 AM CDT Respiratory Rate 18 02/22/2018 5:58 PM CDT Oxygen Saturation 97% 02/22/2018 5:58 PM CDT Inhaled Oxygen Concentration - - Weight 87.5 kg (192 lb 12.8 oz) 021 10:34 AM CDT Height 170.2 cm (5' 7) 09/03/2021 10:3 4 AM CDT Body Mass Index 30.2 09/03/2021 10:34 AM CDT Plan of Treatment Health Maintenance Due Date Last Done Comments COLOGUARD (AGES 45-75) - COL ON CA SCREENING 1964 COLON MONITORING 1964 COLONOSCOPY - COLON CA SCREENING 1964 CT COLONOGRAPHY - COLON CA SCREENING 1964 Colorectal Cancer Screening 1964 FIT - COLON CA SCREENING 1964 FLEX SIG - COLON CA SCREENING 1964 LIPID TESTING 1964 HIV SCREENING 1979 HEPATITIS C SCREENING 05/28/1982 DTAP/TDAP/TD VACCINES (1 - Tdap) 1983 PNEUMOCOCCAL VACCINE 50+ (1 of 1 - PCV) 2014 ZOSTER VACCINE (1 of 2) 2014 SCREENING FOR DIABETES 09/03/2021 05/09/2017 MAMMOGRAM 06/02/2023 06/02/2021 DEPRESSION SCREENING 11/21/2024 COVID-19 VACCINE (3 - 2024-2 6 season) 2025 12/09/2020, 11/20/2020 INFLUENZA VACCINE (#1) 2025 08/21/2019 Respiratory Syncytial Virus (RSV) Vaccine Pt: or over 60 yrs (1 - 1-dose 75+ series) 2039 HEPATITIS B VACCINE Aged Out No longe r eligible based on patient's age to complete this topic HIB VACCINE Aged Out No longer eligi ble based on patient's age to complete this topic HPV VACCINE Aged Out No longer eligi ble based on patient's age to complete this topic MENINGOCOCCAL (Group B) VACCINE SHARED DECISION-MAKING Aged Out No longer eligible based on patient's age to complete this topic MENINGOCOCCAL GROUPS A/C/Y/W VACCINE Aged Out No longer eligible b ased on patient's age to complete this topic Procedures Procedure Name Priority Date/Time Associated Diagnosis Comments COMPREHENSIVE METABOLIC PANEL STAT 05/09/2017 4:01 PM CDT from Last 3 Months or Most Recently Relevant to Health Maintenance Results * COMPREHENSIVE METABOLIC PANEL (05/09/2017 4:01 PM CDT) Glucose 91 74 - 106 mg/dL 05/09/2017 4:24 PM CDT [facility] Sodium 140 136 - 145 mmol/L 05/09/2017 4:24 PM CDT [facility] Potassium 4.1 3.5 - 5.1 mmol/L 05/09/2017 4:24 PM CDT [facility] Chloride 105 98 - 107 mmol/L 05/09/2017 4:24 PM CDT [facility] CO2 27 22 - 31 mmol/L 05/09/2017 4:24 PM CDT [facility] Calcium 9.6 8.5 - 10.1 mg/dL 05/09/2017 4:24 PM CDT [facility] Anion Gap 8 8 - 16 mmol/L 05/09/2017 4:24 PM CDT [facility] BUN 12 7 - 21 mg/dL 05/09/2017 4:24 PM CDT [facility] Creatinine 0.75 0.50 - 1.30 mg/dL 05/09/2017 4:24 PM CDT [facility] Alkaline Phosphatase 68 38 - 126 U/L 05/09/2017 4:24 PM CDT [facility] ALT 30 13 - 61 U/L 05/09/2017 4:24 PM CDT [facility] AST 20 5 - 40 U/L 05/09/2017 4:24 PM CDT [facility] Protein Total 8.0 6.4 - 8.2 gm/dL 05/09/2017 4:24 PM CDT [facility] Albumin 3.8 3.4 - 5.0 gm/dL 05/09/2017 4:24 PM CDT [facility] Bilirubin Total 0.5 0.2 - 1.0 mg/dL 05/09/2017 4:24 PM CDT [facility] eGFR by MDRD >60 >60 mL/min/1.7 3m2 05/09/2017 4:24 PM CDT [facility] eGFR by MDRD >60 >60 mL/min/1.7 3m2 05/09/2017 4:24 PM CDT [facility] Blood BLOOD SPECIMEN / Unknown 05/09/2017 4:01 PM CDT 05/09/2017 4:06 PM CDT us Jamee Peoples MD LAB - CHEMISTRY ORDERABL ES Final Result [facility] [id number] [place] [address] from Last 3 Months or Most Recently Relevant to Health Maintenance Insurance [employer] [facility] [employer] Care Teams Flat Lock Operator Relationship Specialty Start Date End Date Keshav Spears DO [address] [place] [id number] PCP - General 05/04/21
--- OUTSIDE RECORDS SUMMARY | 2025-07-25 17:45 | XMS_ITS | Clinical Summary ---
Author Organization [facility] Address [address] [place] [phone] Care Team Providers Care Manager Access Name Role Phone Unavailable Primary Care Provider Unavailabl e Medications No known medications Active Problems No known active problems Immunizations Immunization Administration Dates Next Due (IncentOne)(12 YR UP) COVID-19 VACCINE - EMERGENCY USE AUTHORIZATION, MRNA, [id number](PF) 30 MCG/0.3 ML IM SUSP 12/09/2020,11/20/2020 Social History Tobacco Use Types Packs/Day Years Used Date Smoking Tobacco: Never Assessed Comments Unknown Sex and Gender Information Value Date Recorded Sex Assigned at Not on file Legal Sex Female 12:41 PM CDT Gender Identity Not on file Sexual Orientation Not on file Last Filed Vital Signs Vital Sign Reading Time Taken Comments Blood Pressure 145/78 05/09/2017 1:05 PM CDT Pulse 72 05/09/2017 1:05 PM CDT Temperature 36.9 C (98.4 F) 05/09/2017 1:05 PM CDT Respiratory Rate - - Oxygen Saturation - - Inhaled Oxygen Concentration - - Weight - - Height - - Body Mass Index - - Plan of Treatment Health Maintenance Due Date Last Done Comments DTAP/TDAP/TD VACCINES (1 - Tdap) 1983 HPV/Cotest (21-29) 1985 CERVICAL CANCER SCREENING 1994 HPV/Cotest (30-65) 1994 PAP SMEAR 1994 BREAST CANCER SCREENING 2004 COLORECTAL SCREENING 2009 Colorectal Cancer Screening 2009 FIT-DNA Q 3 years 2009 FIT/FOBT Q 1 year 2009 Flex Sig/CT Colonography Q 5 years 2009 ZOSTER VACCINE (1 of 2) 2014 INFLUENZA VACCINE (#1) 2025 COVID-19 Vaccine ( season) 2025, 11/20/2020 RSV VACCINE (60+ or ) (1 - 1-dose 75+ series) 2039
--- OUTSIDE RECORDS SUMMARY | 2025-07-25 17:46 | XMS_ITS ---
Author Organization [facility] Address [address] [place] [address] Care Team Providers Care Coater Slate Name Role Phone Keshav Spears DO Primary Care Provide r Keshav Spears DO Unavailable Felix Simmons MD Unavailable Active Problems Problem Noted Date Diagnosed Date Pancreatic cancer 07/09/2025 Assessment & Plan (07/12/2025 2:32 PM CDT): - Currently on cycle 5 of gemcitabine and paclitaxel 06/26. - Finished SBRT - CT as above with patent duodenal stent. - EGD 07/11 unremarkable with patent stent. - Barium swallow normal. - Tolerated regular diet. - Zofran PRN. Added metoclopramide. - Pantoprazole 40mg Daily - Oncology team following. Appreciate recs. Assessment & Plan (07/11/2025 1:00 PM CDT): - Currently on cycle 5 of gemcitabine and paclitaxel 86. - Finished SBRT - CT as above with patent duodenal stent. - EGD 07/11 unremarkable with patent stent. - Plan for barium swallow. - Start full liquid diet and advance as tolerated. - 0.45% NS in D5 AT 75cc/hr - Zofran PRN. Add scheduled metoclopramide. - Pantoprazole 40mg Daily - Oncology team following. Appreciate recs. Assessment & Plan (07/10/2025 1:02 PM CDT): - Currently on cycle 5 of gemcitabine and paclitaxel 8. - Finished SBRT - CT as above with patent duodenal stent. - GI consult to see. - 0.45% NS in D5 AT 75cc/hr - Zofran PRN. Add scheduled metoclopramide. - Pantoprazole 40mg Daily - Oncology team following. Appreciate recs. Assessment & Plan (07/09/2025 11:30 PM CDT): - Currently on cycle 5 of gemcitabine and paclitaxel 8, scheduled for chemotherapy tomorrow - Finished SBRT - Complaints do raise concern for GOO but there is no radiographic evidence and LAMS stent appears to be patent. Potential etiologies include mass effect on SMA as mass abuts the artery leading to post prandial pain and vomiting vs mass effect on duodenum, character of pain does not sound like pancreatitis and no peptic ulcer was seen on last endoscopy. At any rate oncology clinic requested GI consult - CLD tonight, NPO after midnight in case she is taken for procedure - 0.45% NS in D5 AT 75cc/hr - Zofran PRN - Pantoprazole 40mg Daily Depression, major, recurrent 07/09/2025 Assessment & Plan (07/12/2025 2:32 PM CDT): - Continue zoloft 150mg daily Assessment & Plan (07/11/2025 1:00 PM CDT): - Continue zoloft 150mg daily Assessment & Plan (07/10/2025 1:02 PM CDT): - Continue zoloft 150mg daily Assessment & Plan (07/09/2025 11:30 PM CDT): - Continue zoloft 150mg daily Vomiting 07/09/2025 Assessment & Plan (07/12/2025 2:32 PM CDT): - Currently on cycle 5 of gemcitabine and paclitaxel 8/6. - Finished SBRT - CT as above with patent duodenal stent. - EGD 07/11 unremarkable with patent stent. - Barium swallow normal. - Tolerated regular diet. - Zofran PRN. Added metoclopramide. - Pantoprazole 40mg Daily - Oncology team following. Appreciate recs. Assessment & Plan (07/11/2025 1:00 PM CDT): - Currently on cycle 5 of gemcitabine and paclitaxel 8/6. - Finished SBRT - CT as above with patent duodenal stent. - EGD 07/11 unremarkable with patent stent. - Plan for barium swallow. - Start full liquid diet and advance as tolerated. - 0.45% NS in D5 AT 75cc/hr - Zofran PRN. Add scheduled metoclopramide. - Pantoprazole 40mg Daily - Oncology team following. Appreciate recs. Assessment & Plan (07/10/2025 1:02 PM CDT): - Currently on cycle 5 of gemcitabine and paclitaxel 8/6. - Finished SBRT - CT as above with patent duodenal stent. - GI consult to see. - 0.45% NS in D5 AT 75cc/hr - Zofran PRN. Add scheduled metoclopramide. - Pantoprazole 40mg Daily - Oncology team following. Appreciate recs. Assessment & Plan (07/09/2025 11:30 PM CDT): - Currently on cycle 5 of gemcitabine and paclitaxel 8/6, scheduled for chemotherapy tomorrow - Finished SBRT - Complaints do raise concern for GOO but there is no radiographic evidence and LAMS stent appears to be patent. Potential etiologies include mass effect on SMA as mass abuts the artery leading to post prandial pain and vomiting vs mass effect on duodenum, character of pain does not sound like pancreatitis and no peptic ulcer was seen on last endoscopy. At any rate oncology clinic requested GI consult - CLD tonight, NPO after midnight in case she is taken for procedure - 0.45% NS in D5 AT 75cc/hr - Zofran PRN - Pantoprazole 40mg Daily Intolerance, food 07/09/2025 Assessment & Plan (07/12/2025 2:32 PM CDT): - Currently on cycle 5 of gemcitabine and paclitaxel 8/6. - Finished SBRT - CT as above with patent duodenal stent. - EGD 07/11 unremarkable with patent stent. - Barium swallow normal. - Tolerated regular diet. - Zofran PRN. Added metoclopramide. - Pantoprazole 40mg Daily - Oncology team following. Appreciate recs. Assessment & Plan (07/11/2025 1:00 PM CDT): - Currently on cycle 5 of gemcitabine and paclitaxel 8/6. - Finished SBRT - CT as above with patent duodenal stent. - EGD 07/11 unremarkable with patent stent. - Plan for barium swallow. - Start full liquid diet and advance as tolerated. - 0.45% NS in D5 AT 75cc/hr - Zofran PRN. Add scheduled metoclopramide. - Pantoprazole 40mg Daily - Oncology team following. Appreciate recs. Assessment & Plan (07/10/2025 1:02 PM CDT): - Currently on cycle 5 of gemcitabine and paclitaxel 8/6. - Finished SBRT - CT as above with patent duodenal stent. - GI consult to see. - 0.45% NS in D5 AT 75cc/hr - Zofran PRN. Add scheduled metoclopramide. - Pantoprazole 40mg Daily - Oncology team following. Appreciate recs. Assessment & Plan (07/09/2025 11:30 PM CDT): - Currently on cycle 5 of gemcitabine and paclitaxel 8/6, scheduled for chemotherapy tomorrow - Finished SBRT - Complaints do raise concern for GOO but there is no radiographic evidence and LAMS stent appears to be patent. Potential etiologies include mass effect on SMA as mass abuts the artery leading to post prandial pain and vomiting vs mass effect on duodenum, character of pain does not sound like pancreatitis and no peptic ulcer was seen on last endoscopy. At any rate oncology clinic requested GI consult - CLD tonight, NPO after midnight in case she is taken for procedure - 0.45% NS in D5 AT 75cc/hr - Zofran PRN - Pantoprazole 40mg Daily Pain in the abdomen 07/09/2025 Nutritional assessment 05/02/2025 Constipation 03/08/2025 Assessment & Plan (03/09/2025 11:04 AM CDT): -KUB on admission showed stool burden. -Start bowel regimen w/ miralax 17g BID and senokot BID Assessment & Plan (03/08/2025 12:34 PM CDT): -KUB on admission showed stool burden. -Start bowel regimen w/ miralax 17g BID and senokot BID Assessment & Plan (03/08/2025 5:34 AM CDT): -KUB on admission showed stool burden. -Start bowel regimen w/ miralax 17g daily and will give 1 dose of senna. GERD (gastroesophageal reflux disease) Assessment & Plan (07/12/2025 2:32 PM CDT): - Currently on cycle 5 of gemcitabine and paclitaxel 8. - Finished SBRT - CT as above with patent duodenal stent. - EGD 07/11 unremarkable with patent stent. - Barium swallow normal. - Tolerated regular diet. - Zofran PRN. Added metoclopramide. - Pantoprazole 40mg Daily - Oncology team following. Appreciate recs. Assessment & Plan (07/11/2025 1:00 PM CDT): - Currently on cycle 5 of gemcitabine and paclitaxel 86. - Finished SBRT - CT as above with patent duodenal stent. - EGD 07/11 unremarkable with patent stent. - Plan for barium swallow. - Start full liquid diet and advance as tolerated. - 0.45% NS in D5 AT 75cc/hr - Zofran PRN. Add scheduled metoclopramide. - Pantoprazole 40mg Daily - Oncology team following. Appreciate recs. Assessment & Plan (07/10/2025 1:02 PM CDT): - Currently on cycle 5 of gemcitabine and paclitaxel 8/6. - Finished SBRT - CT as above with patent duodenal stent. - GI consult to see. - 0.45% NS in D5 AT 75cc/hr - Zofran PRN. Add scheduled metoclopramide. - Pantoprazole 40mg Daily - Oncology team following. Appreciate recs. Assessment & Plan (07/09/2025 11:30 PM CDT): - Currently on cycle 5 of gemcitabine and paclitaxel 06/26, scheduled for chemotherapy tomorrow - Finished SBRT - Complaints do raise concern for GOO but there is no radiographic evidence and LAMS stent appears to be patent. Potential etiologies include mass effect on SMA as mass abuts the artery leading to post prandial pain and vomiting vs mass effect on duodenum, character of pain does not sound like pancreatitis and no peptic ulcer was seen on last endoscopy. At any rate oncology clinic requested GI consult - CLD tonight, NPO after midnight in case she is taken for procedure - 0.45% NS in D5 AT 75cc/hr - Zofran PRN - Pantoprazole 40mg Daily Assessment & Plan (03/09/2025 11:37 AM CDT): PPI as elsewhere Assessment & Plan (03/08/2025 12:34 PM CDT): PPI Assessment & Plan (03/08/2025 5:34 AM CDT): PPI Transaminitis 03/08/2025 Assessment & Plan (07/12/2025 2:32 PM CDT): - Unclear etiology, present on prior labs - CTM Assessment & Plan (07/11/2025 1:00 PM CDT): - Unclear etiology, present on prior labs - CTM Assessment & Plan (07/10/2025 1:02 PM CDT): - Unclear etiology, present on prior labs - CTM Assessment & Plan (07/09/2025 11:30 PM CDT): - Unclear etiology, present on prior labs - CTM Assessment & Plan (03/09/2025 11:04 AM CDT): CTM, downtrending Assessment & Plan (03/08/2025 12:34 PM CDT): CTM, downtrending Assessment & Plan (03/08/2025 5:34 AM CDT): CTM Gastric outlet obstruction 03/07/2025 Assessment & Plan (03/09/2025 11:37 AM CDT): P/w N/V/inability to tolerate p.o. intake of 1 day duration in the setting of known pancreatic mass abutting on the duodenum - s/p gastrojejunostomy with stent placement with biliary service 03/08, now GI has signed off - CLD for 2 days and then full liquids for 1 week and then stent diet - continue IV protonix BID and omeprazole BID at dischaarge -C/S RD for malnutrition assessment, supplements, stent diet education- to see today Assessment & Plan (03/08/2025 12:34 PM CDT): P/w N/V/inability to tolerate p.o. intake of 1 day duration in the setting of known pancreatic mass abutting on the duodenum CTA/P (03/04) showed that the pancreatic mass is abutting and narrowing the 3rd portion of the duodenum causing upstream dilation of the duodenum and gastric distention, it also showed the mass causing narrowing of the superior mesenteric vein and encasing the superior mesenteric artery. -KUB without obstruction but does show large stool burden -GI-biliary consulted, plan for EGD with possible duodenal stent placement 03/08 -Supportive care with IVF, p.r.n. antiemetics, p.r.n. pain meds, electrolyte monitoring and repletion p.r.n.. -Will give meds as IV if possible. -C/S RD for malnutrition assessment, supplements, stent diet education. Assessment & Plan (03/08/2025 5:39 AM CDT): P/w N/V/inability to tolerate p.o. intake of 1 day duration in the setting of known pancreatic mass abutting on the duodenum CTA/P (03/04) showed that the pancreatic mass is abutting and narrowing the 3rd portion of the duodenum causing upstream dilation of the duodenum and gastric distention, it also showed the mass causing narrowing of the superior mesenteric vein and encasing the superior mesenteric artery. -KUB obtained on admission, I reviewed it, pt has no bowel obstruction or perforation, has stool burden. -GI-biliary consulted, I dicussed the plan with them and reviewed their note, plan for duodenal stenting tomorrow. They recommend placing a NGT to LIS today. -Nurses were unable to place NGT (3 attempts), discussed with GI-biliary, will hold off on NGT, can have ice chips and sips of clear fluids today. -Supportive care with IVF, p.r.n. antiemetics, p.r.n. pain meds, electrolyte monitoring and repletion p.r.n.. -Will give meds as IV if possible. -C/S RD for malnutrition assessment, supplements, stent diet education. Anemia 03/07/2025 Assessment & Plan (07/12/2025 2:32 PM CDT): - Stable Assessment & Plan (07/11/2025 1:00 PM CDT): - Likely AOCD - Ferritin, Iron panel Assessment & Plan (07/10/2025 1:02 PM CDT): - Likely AOCD - Ferritin, Iron panel Assessment & Plan (07/09/2025 11:30 PM CDT): - Likely AOCD - Ferritin, Iron panel Assessment & Plan (03/09/2025 11:04 AM CDT): Due to anti-neoplastic rx, no s/s bleed. -CTM, tx for Hb<7 (blood consent obtained on admission) Assessment & Plan (03/08/2025 12:34 PM CDT): Due to anti-neoplastic rx, no s/s bleed. -CTM, tx for Hb<7 (blood consent obtained on admission) Assessment & Plan (03/07/2025 8:26 PM CDT): Due to anti-neoplastic rx, no s/s bleed. -CTM, tx for Hb<7 (blood consent obtained on admission) Family history of breast cancer 02/25/2025 Family history of renal cancer 02/25/2025 Family history of melanoma 02/25/2025 Family history of ovarian cancer 02/25/2025 Dehydration 01/09/2025 Chemotherapy-induced neutropenia 01/09/2025 Prophylaxis for chemotherapy-induced neutropenia 01/09/2025 Pancreatic adenocarcinoma 10/31/2024 Assessment & Plan (03/09/2025 11:04 AM CDT): Initially diagnosed in 10/2024 with locally advanced moderately differentiated pancreatic adenocarcinoma, nonresectable. S/p neoadjuvant FOLFORINOX (4 cycles, 11/2024 -12/2024), then discontinued given lack of response and significant toxicities (N/V, diarrhea, neutropenia) requiring treatment pauses and dose reductions. Currently on gemcitabine/paclitaxel as of 02/06/2025 (s/p 2 cycles, C2D15 was due on 03/06 but was deferred given neutropenia). Follows with Dr. Simmons. Med onc cs Assessment & Plan (03/08/2025 12:34 PM CDT): Initially diagnosed in 10/2024 with locally advanced moderately differentiated pancreatic adenocarcinoma, nonresectable. S/p neoadjuvant FOLFORINOX (4 cycles, 11/2024 -12/2024), then discontinued given lack of response and significant toxicities (N/V, diarrhea, neutropenia) requiring treatment pauses and dose reductions. Currently on gemcitabine/paclitaxel as of 02/06/2025 (s/p 2 cycles, C2D15 was due on 03/06 but was deferred given neutropenia). Follows with Dr. Simmons. Med onc cs Assessment & Plan (03/08/2025 5:39 AM CDT): Initially diagnosed in 10/2024 with locally advanced moderately differentiated pancreatic adenocarcinoma, nonresectable. S/p neoadjuvant FOLFORINOX (4 cycles, 11/2024 -12/2024), then discontinued given lack of response and significant toxicities (N/V, diarrhea, neutropenia) requiring treatment pauses and dose reductions. Currently on gemcitabine/paclitaxel as of 02/06/2025 (s/p 2 cycles, C2D15 was due on 03/06 but was deferred given neutropenia). Follows with Dr. Simmons. -Consult medical oncology in AM Assessment & Plan (11/01/2024 4:55 PM CONCRETE LAYER): Patient with intermittent LUQ pain for 2 months accompanied with nausea. No fever, night sweats or weight loss. No steatorrhea. Work-up: - CT CAP w con with hypoattenuating lesion in the pancreatic uncinate process and head, measuring 3.7 cm x 2.4 cm x 3.8 cm, abutting the third and fourth segments of the duodenum. It encases 180 degrees of the superior mesenteric artery and abuts the superior mesenteric vein and its branches, with adjacent fat stranding, which is highly suspicious for a pancreatic neoplasm such as adenocarcinoma. There is no pancreatic atrophy, ductal dilation, or involvement of the celiac axis. No metastatic disease within the chest. - Family history significant for RCC, Ovarian Ca and Stomach cancer Normal LFT, ALk phos, Tbili and lipase. -CEA: elevated 27.5 -CA-19: elevated 484 -CA-125: normal 23 Plan: - biliary consulted, s/p EUS guided biopsy on 11/01---monitor post-op for pancreatitis, perforation, infection, GI bleed - follow up result of surgical pathology to officially diagnose pancreatic cancer - oncology consulted, no further inpatient work-up/imaging - [facility] surgery consulted for evaluation for surgical candidacy: This has not been diagnosed but if path comes back PDAC, it is locally advanced unresectable. Chemo and possible radiotherapy would be options with follow up imaging for response but pathology must result prior to these discussions outpatient 1) Not a surgical candidate at this time. 2) surgery team feels like the encasement of the tumor around the SMA means it's 360 degrees contact 3) if the tumor shrinks in the future with chemoradiation, they can re-consult surgery team at that time to see if a surgical candidate (but less likely) 4) Can list for pancreas conference once PDAC confirmed after biopsy result - plan to likely discharge 11/02 AM - will need referral to outpatient genetic counseling at discharge - PRN tylenol and oxycodone for pain control Anxiety 10/31/2024 Assessment & Plan (07/12/2025 2:32 PM CDT): - Continue zoloft 150mg daily Assessment & Plan (07/11/2025 1:00 PM CDT): - Continue zoloft 150mg daily Assessment & Plan (07/10/2025 1:02 PM CDT): - Continue zoloft 150mg daily Assessment & Plan (07/09/2025 11:30 PM CDT): - Continue zoloft 150mg daily Assessment & Plan (03/09/2025 11:04 AM CDT): Saw Dr. Sweeney in clinic today, Zoloft increased from 50 to 100 mg daily. -resume zoloft at 100 mg daily. Assessment & Plan (03/08/2025 12:34 PM CDT): Saw Dr. Sweeney in clinic today, Zoloft increased from 50 to 100 mg daily. -resume zoloft at 100 mg daily. Assessment & Plan (03/08/2025 5:34 AM CDT): Saw Dr. Sweeney in clinic today, Zoloft increased from 50 to 100 mg daily. -resume zoloft at 100 mg daily. Assessment & Plan (10/31/2024 5:17 AM CONCRETE LAYER): Continue home Zoloft Ovarian cyst 10/31/2024 Assessment & Plan (10/31/2024 8:53 PM CONCRETE LAYER): Large ovarian cyst seen incidentally on CT on admission. Work-up -CT C/A/P with 5.7 cm right adnexal cystic lesion. Recommend further assessment with pelvic ultrasound. -US pelvis: Simple right ovarian cyst, O-RADS 2. Recommend follow-up ultrasound in one year and gynecologic consultation. PLAN -consulted obgyn, appreciate rec: - Recommend surveillance ultrasound in 6 months to 1 year for ovarian cyst, patient will complete with primary OBGYN in hometown - Discussed signs/symptoms of ovarian torsion - Recommend genetic testing given significant family cancer history - Continued pancreatic mass workup per oncology BMI 28.0-28.9,adult 01/03/2020 Assessment & Plan (03/09/2025 11:04 AM CDT): Complicates prognosis and hospital course. Assessment & Plan (03/08/2025 12:34 PM CDT): Complicates prognosis and hospital course. Assessment & Plan (03/08/2025 5:39 AM CDT): Complicates prognosis and hospital course. Current Treatment and Therapy Plans Gemcitabine / Albumin-bound PACLItaxel (Abraxane) 28 Day Cycles - Pancreas* Plan Start Date:01/30/2025 Plan Provider:Felix Simmons MD Linked Problems Pancreatic adenocarcinoma ([facility])Prophylaxis for chemotherapy-induced neutropenia Treatment Medications Current Day (Day 1 5, Cycle 6 - Planned for 08/07/2025) Next Day (Day 1, Cycle 7 - Planned for 08/21/2025) albumin-bound PACLItaxel (ABRAXANE)albumin-bound PACLItaxel (ABRAXANE) 5 mg/mLdexAMETHasone (DECADRON)gemcitabine (GEMZAR)gemcitabine (GEMZAR) IVPB in 250 mL (using 38 mg/mL gemCITabine) (J9201) albumin-bound PACLItaxel (ABRAXANE) 5 mg/mL IVPB in empty container 245 mggemcitabine (GEMZAR - J9201) 1,950 mg in sodium chloride 0.9% 250 mL IVPB albumin-bound PACLItaxel (ABRAXANE) 5 mg/mL IVPB in empty container 245 mggemcitabine (GEMZAR - J9201) 1,950 mg in sodium chloride 0.9% 250 mL IVPB Hydration Therapy Plan* Plan Start Date:01/09/2025 Plan Provider:Felix Simmons MD Linked Problems DehydrationPancreatic adenoc arcinoma (HCC) Treatment Medications No medications scheduled. IV Maintenance Therapy Plan* Plan Start Date:12/21/2024 Plan Provider:Felix Simmons MD Linked Problems Pancreatic adenocarcinoma ([facility]) Treatment Medications No medications scheduled. Other Current Plans BMT Adult Blood and Platelet Administration for Inpatient* Plan Start Date: 03/07/2025 Plan Provider:Yiemy Boyd MD Linked Problems Drug-induced folate deficien cy anemia Treatment Medications No medications scheduled. Past Treatment and Therapy Plans Oncology Chemotherapy Treatment Plan Name Start Date Discontinue Date Treatment Medications Discontinue Reason Plan Provider Cycles modified FOLFIRINOX: (Fluorouraci l / Leucovorin / Irinotecan (150 mg/m2) / OXALIplatin) 14 Day Cycles - Pancreatic 5 01/30/2025 dexAMETHasone (DECADRON)fluorouracil (ADRUCIL)fluorouracil (ADRUCIL) infusion - for home infusion (ADRUCIL)IRINOtecan (CAMPTOSAR)IRINOtecan (CAMPTOSAR) IVPB in 250 mLleucovorinleucovorin IVPB in 250 mLoxaliplatin (ELOXATIN)oxaliplatin (ELOXATIN) IVPB Provider Discretion Felix Simmons MD 4 of 12 cycles started Current Radiation Episodes * Radiation Oncology - Radiation Therapy - March 2025Overview* First Treatment Date Latest Treatment Date Treatment Site Technique Goal Episode Provider 05/14/2025 05/20/2025 Fidel Reese MD PhD Treatment Courses* Course [id number]/14/2025 - 05/20/2025 Treatment Period Fraction Dose Fractions Total Dose Plans Planned VR_PANCREAS 05/14/2025 - 05/20/2025 1,000 5 / 5,000 Reference Points Delivered [id number]_[id number] 05/14/2025 - 05/20/2025 5,000 Lifetime Dose Tracking * Chemical Lifetime Dose Automatic Entry Manual Entr y Fluoro Time 17 minutes 17 minutes 0 minutes Air kerma at the reference point (Ka,r) 507.7 mGy 5 07.7 mGy 0 mGy DLP 4,258 mGycm 4,258 mGycm 0 mGycm
--- OUTSIDE RECORDS SUMMARY | 2025-07-25 17:46 | XMS_ITS | Clinical Summary ---
Author Organization [facility] Address [facility] [place] [address] Care Team Providers Care Sewer Name Role Phone Keshav Spears Primary Care Provider + Allergies Active Allergy Reactions Criticality Noted Date Comments Irinotecan Dizziness,Infusion Reaction,Other (see comment) Low 12/12/2024 Tongue feels thick Medications ibuprofen (MOTRIN) 600 MG tablet Take 1 tablet 2 hours prior to surgery 4 Active dexamethasone (DECADRON) 4 MG tablet Take 2 tablets (8 mg total) by mouth once daily on days 2 and 3 of each treatment cycle. 5 Active lidocaine (LIDODERM) 5 % Place 1 patch onto the skin. 4 Active loperamide (IMODIUM) 2 MG capsule Take 2 caps (4 mg) by mouth with first onset of diarrhea, 1 cap (2 mg) after each loose stool thereafter. Max 8 caps (16 mg) per 24 hours. 5 Active ondansetron (ZOFRAN) 8 MG tablet Take 1 tablet (8 mg total) by mouth. 5 Active prochlorperazine (COMPAZINE) 10 MG tablet Take 1 tablet (10 mg total) by mouth. 5 Active NON FORMULARY CBD/ THC gummies for sleep. Active omeprazole (PRILOSEC) 40 MG capsuleIndications :Left upper quadrant pain,Viral illness TAKE 1 CAPSULE (40 MG TOTAL) BY MOUTH DAILY. 90 capsule 1 4 Active dicyclomine (BENTYL) 20 MG tablet 4 Active HYDROcodone-acetam inophen (NORCO) 5-325 MG tabletIndications: Acute Pain < 7 Day Supply Take 1 tablet by mouth every 6 (six) hours as needed for Pain. Indications: Acute Pain < 7 Day Supply 28 tablet 5 Active LORazepam (ATIVAN) 0.5 MG tabletIndications: Pancreatic adenocarcinoma ([facility]),Anxiety Take 1 tablet (0.5 mg total) by mouth 2 (two) times daily as needed for Anxiety. 30 tablet 5 Active sertraline (ZOLOFT) 50 MG tabletIndications: BETY (generalized anxiety disorder),Current moderate episode of major depressive disorder without prior episode ([facility]) TAKE 1 TABLET BY MOUTH EVERY DAY 90 tablet 5 Active Active Problems Problem Noted Date Diagnosed Date Chemotherapy-induced neutropenia 01/09/2025 Ovarian cyst 10/31/2024 Pancreatic adenocarcinoma ([facility] HHS/HCC) 10/21 Anxiety 10/31/2024 Immunizations Immunization Administration Dates Next Due Influenza Adult (Generic) 08/21/2024,09/2023,11/04/2020,2018 MMR (Generic) 06/05/2018 MMR (MMRII) 06/05/2018 PFIZER COVID-19 (ORIGINAL FORMULATION, PURPLE CAP) mRNA, LNP-S, PF, 30 MCG/0.3 ML DOSE 12/09/2020,11/20/2020 Shingrix 10/24/2024,08/02/2024 Tdap (Adacel) 01/03/2020 Tdap (Generic) 10/13/2021 Family History Medical History Relation Comments Cancer Maternal Grandmother Breast Depression Mother Cancer Paternal Aunt Jamia Cancer Paternal Grandmother Breast Relation Status Comments Maternal Grandmother Mother Paternal Aunt Paternal Grandmother Social History Tobacco Use Types Packs/Day Years Used Date Smoking Tobacco: Never Smokeless Tobacco: Never Tobacco Cessation:Counseling Given: Not Answered Alcohol Use Standard Drinks/Week Comments Not Currently 3.3 (1 standard drink = 0.6 oz p ure alcohol) AUDIT-C Answer Date Recorded Frequency of Alcohol Consumption 2-4 times a mon 01/03/2020 Average Number of Drinks 1 or 2 020 Frequency of Binge Drinking Less than monthly PHQ-2 Answer Date Recorded Patient Health Questionnaire-2 Score 0 01/09/2025 Comments No Sex and Gender Information Value Date Recorded Sex Assigned at Female 10/24/2024 1:30 PM TIRE RETREADER Legal Sex Female 12:10 PM TIRE RETREADER Gender Identity Female 10/24/2024 1:30 PM TIRE RETREADER Sexual Orientation Not on file Occupation Industry Job Start Date Job End Date Not on file Not on file Not on file Not on file Last Filed Vital Signs Vital Sign Reading Time Taken Comments Blood Pressure 120/84 11/13/2024 11:00 AM TIRE RETREADER Pulse 80 11/13/2024 11:00 AM TIRE RETREADER Temperature 36.2 C (97.2 F) 11/13/2024 11:00 AM TIRE RETREADER Respiratory Rate 16 11/13/2024 11:00 AM TIRE RETREADER Oxygen Saturation 98% 11/13/2024 11:00 AM TIRE RETREADER Inhaled Oxygen Concentration - - Weight 83.6 kg (184 lb 3.2 oz) 11/13/2024 11:00 AM TIRE RETREADER Height 172.7 cm (5' 8) 11/13/2024 11:00 AM TIRE RETREADER Body Mass Index 28.01 11/13/2024 11:00 AM TIRE RETREADER Plan of Treatment Health Maintenance Due Date Last Done Comments Pneumococcal Vaccine: 50+ Years (1 of 2 - PCV) 1984 Mammogram Screening 05/20/2023 05/20/2021, 05/12/2021, 05/01/2021, Additional history exists Annual Physical 06/11/2023 06/11/2022, 03/21, 01/03/2020 COVID-19 Vaccine (3 - Pfizer risk series) 08/02/2025 12/09/2020, 11/20/2020 Postponed from 01/06/2021 (Going to Outside Clinic) RSV Immunization or 60+ Years (1 - Risk 60-74 years 1-dose series) 08/02/2025 Postponed fro m 2024 (Going to Outside Clinic) Colorectal Cancer Screening Colonoscopy (10 Years) 10/13/2025 10/13/2015, 10/13/2015 Cervical Cancer Screening Pap with HPV Testing (Age 30 to 64) Every 5 Years 04/16/2026 04/16/2021, 04/16/2021 Cervical Cancer Screening Pap Smear (Age 30 to 64) Every 3 Years 05/04/2027 05/04/2024, 04/16/2021 Cervical Cancer Screening with HPV 05/04/2027 DTaP, Tdap and Td Vaccines (4 - Td or Tdap) 12/26/2034 12/26/2024, 10/13/2021, 01/03/2020 Hepatitis C Completed 01/03/2020 Zoster Vaccines Completed 10/24/2024, 08/02/2024 PHQ-2 (Physician Huslia) Completed 01/09/2025 Meningococcal B Vaccine Aged Out No l onger eligible based on patient's age to complete this topic Meningococcal Vaccine Aged Out No cherelle rubi eligible based on patient's age to complete this topic RSV Immunizations Under 20 Months Aged Out No longer eligible based on patient's age to complete this topic Procedures Procedure Name Priority Date/Time Associated Diagnosis Comments MAMMOGRAM GENERIC (SCAN ORDER) 05/20/2021 HPV MRNA E6/E7 Routine 04/16/2021 10:33 AM CDT CYTOPATH CERV/VAG THIN LAYER Routine 04/16/2021 10:33 AM CDT Well woman exam HEPATITIS C ANTIBODY Routine 01/03/2020 8:24 AM TIRE RETREADER Need for hepatitis C screening test COLONOSCOPY/EGD GENERIC (SCAN ORDER) Routine 10/13/2015 from Last 3 Months or Most Recently Relevant to Health Maintenance Results * MAMMOGRAM GENERIC (05/20/2021) Anatomical Region Laterality Modality Other 05/20/2021 Narrative 05/20/2021 Ordered by an unspecified provider. us Documents Scanned SCANNING Final Result * (ABNORMAL) HPV MRNA E6/E7 (04/16/2021 10:33 AM CDT) Pathologist [facility] HPV MRNA E6/E7 Detected( A) Not Detected [facility] [place] Comment: Methodology: Hospital Pharmacist-Mediated Amplification This assay detects E6/E7 viral messenger RNA (mRNA) from 14 high-risk HPV types (16,18,31,33,35,39,45,51,52,56,58,59,66,68). The analytical performance characteristics of this assay have been determined by [facility]. The modifications have not been cleared or approved by the FDA. This assay has been validated pursuant to the CLIA regulations and is used for clinical purposes. For additional information, please refer to http://education.[employer]/faq/ANL373m8 (This link if provided for information/ educational purposes only.) 04/16/2021 10:3 3 AM CDT 04/17/2021 12:58 AM CDT us Susan DUMONT PATHOLOGY/CYTOLOGY ORDERABL ES Final Result [employer] Sharona MEJIA [facility] [place] [address] [address] [place] [phone] * Cytopath Cerv/Vag Thin Layer (04/16/2021 10:33 AM CDT) CLINICAL INFORMATION: Postmenopausal [facility] Clinical Information: 6 YEARS AGO [facility] Date of Last Pap INFORMATION NOT PROVIDED [facility] Previous Biopsy? INFORMATION NOT PROVIDED [facility] SOURCE (QST) Cervix, Endocervix [facility] STATEMENT OF ADEQUACY: [facility] Comment: Satisfactory for evaluation. Endocervical/transformation zone component absent. PAP INTERPRETATION/RESU LTS Negative for intraepithelial lesion or malignancy. [facility] SWEAT BAND SEPARATOR [facility] Comment: STEPHON WATSON(ASCP) CT screening location: [place] [address] [address] [place] [address] REVIEW SWEAT BAND SEPARATOR: [facility] Comment: STEPHON MCPHERSON(ASCP) CT screening location: [place] [address] [address] [place] [address] COMMENT: [facility] Comment: EXPLANATORY NOTE: The Pap is a screening test for cervical cancer. It is not a diagnostic test and is subject to false negative and false positive results. It is most reliable when a satisfactory sample, regularly obtained, is submitted with relevant clinical findings and history, and when the Pap result is evaluated along with historic and current clinical information. 04/16/2021 10:3 3 AM CDT 04/17/2021 12:58 AM CDT Susan DUMONT PATHOLOGY/CYTOLOGY ORDERABL ES Final Result [facility] [address] [place] [address] * HEPATITIS C ANTIBODY (01/03/2020 8:24 AM TIRE RETREADER) HEPATITIS C AB <0.1 0.0 - 0.9 s/co ratio [facility] 1 Comment: Negative: < 0.8 Indeterminate: 0.8 - 0.9 Positive: > 0.9 The CDC recommends that a positive HCV antibody result be followed up with a HCV Nucleic Acid Amplification test (620338). 01/03/2020 8:24 AM TIRE RETREADER 01/04/2020 Narrative [facility] - 01/04/2020 8:13 AM TIRE RETREADER Performed at: [facility] [place] [id number] Cardiac Cath Lab Manager: Linden Grossman PhD, Phone: [phone] us Keshav Spears DO LABORATORY Final Re sult Performing Organization Address City/State/[facility] Co de Phone Number [facility] [address] [place] [address] [facility] * COLONOSCOPY/EGD (10/13/2015) us Documents Scanned SCANNING Edited Result - Final [facility] [place] from Last 3 Months or Most Recently Relevant to Health Maintenance Insurance [facility] Care Teams Sewer Relationship Specialty Start Date End Date Keshav Spears DO [address] [place] [id number] PCP - General FAMILY PRACTICE 12/11/19
--- OUTSIDE RECORDS SUMMARY | 2025-07-25 17:46 | XMS_ITS | Encounter Summary ---
Author Organization [facility] Address [address] [place] [address] Care Team Providers Care Corn Lab Technician Name Role Phone Keshav Spears Primary Care Provider + Encounter Details Date Type Department Care Team (Latest Contact Info) Description 11/23/2024 [employer] Message Enc [facility] Multispecialty [facility] - [address], [address] [place] [address] [employer], [facility] Provider Appointment on Tuesday Social History Tobacco Use Types Packs/Day Years [...] Answer Date Recorded Patient Health Questionnaire-2 Score 6 03/21/2024 Comments No Sex and Gender Information Value Date Recorded Sex Assigned at Female 10/24/2024 1:30 PM DIRECTOR EPIDEMIOLOGY Legal Sex Female 12:10 PM DIRECTOR EPIDEMIOLOGY Gender Identity Female 10/24/2024 1:30 PM DIRECTOR EPIDEMIOLOGY Sexual Orientation Not on file Occupation Industry Job Start Date Job End Date Not on file Not on file Not on file Not on file documented as of this encounter Plan of Treatment Not on file documented as of this encounter Visit Diagnoses Not on filedocumented in this encounter Additional Health Concerns Assessment Noted Time PHQ-9 Depression Total Score: 20 024 7:41 AM CDT documented as of this encounter Care Teams Corn Lab Technician Relationship Specialty Start Date End Date Keshav Spears DO [address] [place] [id number] PCP - General FAMILY PRACTICE 12/11/19 documented as of this encounter
--- OUTSIDE RECORDS SUMMARY | 2025-07-25 17:46 | XMS_ITS | Clinical Summary ---
Author Organization [facility] Address [address] [place] [address] Care Team Providers Care Brake Lining Finisher Name Role Phone Keshav Spears DO Primary Care Provide r Keshav Spears DO Unavailable [phone] Felix Simmons MD Unavailable [phone] Allergies Active Allergy Reactions Criticality Noted Date Comments Irinotecan Dizziness,Flushing (skin),Other (See comments) Low 12/12/2024 Tongue feels thick Medications HYDROcodone-aceta minophen (NORCO) 5-325 mg per tablet Take 1 tablet by mouth every 6 (six) hours as needed 11/13/20 24 Active LORazepam (ATIVAN) 0.5 mg tablet Take 1 tablet (0.5 mg total) by mouth 2 (two) times a day as needed 01/09/20 25 Active prochlorperazine (Compazine) 10 mg tabletIndications :Malignant neoplasm of other parts of pancreas Take 1 tablet (10 mg total) by mouth every 6 (six) hours as needed for nausea or vomiting 120 tablet 3 02/06/20 25 Active NON FORMULARY, FOR INPATIENT USE, CBD/ THC gummies for sleep. Active ondansetron ODT (ZOFRAN-ODT) 8 mg disintegrating tablet Take 1 tablet (8 mg total) by mouth every 8 (eight) hours as needed for nausea or vomiting 40 tablet 3 05/22/20 25 Active sertraline (Zoloft) 100 mg tabletIndications :Anxiety with Depression Take 1.5 tablets (150 mg total) by mouth daily 30 tablet 2 05/23/20 25 Active metoclopramide (REGLAN) 5 mg tablet Take 1 tablet (5 mg total) by mouth 3 (three) times a day as needed (3rd line for nausea) 20 tablet 07/12/20 25 Active bismuth subsalicylate 262 mg tablet,chewableIn dications:Helicob acter pylori gastritis Take 2 tablets (524 mg total) by mouth 4 (four) times a day before meals and nightly for 10 days 80 tablet 07/25/20 25 025 Active metroNIDAZOLE (FLAGYL) 500 mg tabletIndications :Helicobacter pylori gastritis Take 1 tablet (500 mg total) by mouth 3 (three) times a day for 10 days 30 tablet 07/25/20 25 025 Active tetracycline (ACHROMYCIN,SUMYC IN) 500 mg capsuleIndication s:Helicobacter pylori gastritis Take 1 capsule (500 mg total) by mouth 4 (four) times a day for 10 days 40 capsule 07/25/20 25 025 Active omeprazole (PriLOSEC) 40 mg capsule Take 1 capsule (40 mg total) by mouth 2 (two) times a day 60 capsule 07/25/20 25 Active sertraline (ZOLOFT) 50 mg tablet Take 1 tablet (50 mg total) by mouth daily Discontinued omeprazole (PriLOSEC) 40 mg capsule Take 1 capsule (40 mg total) by mouth 2 (two) times a day 03/09/20 25 025 Discontinued(R eorder) methylPREDNISolon e (MEDROL DOSEPACK) 4 mg DosepackIndicatio ns:Left hip pain Take as directed on package. 21 tablet 07/16/20 25 025 metroNIDAZOLE (FLAGYL) 500 mg tabletIndications :Helicobacter pylori gastritis Take 1 tablet (500 mg total) by mouth 3 (three) times a day for 10 days 30 tablet 07/17/20 25 025 Discontinued tetracycline (ACHROMYCIN,SUMYC IN) 500 mg capsuleIndication s:Helicobacter pylori gastritis Take 1 capsule (500 mg total) by mouth 4 (four) times a day for 10 days 40 capsule 07/17/20 025 Discontinued bismuth subsalicylate 262 mg tablet,chewableIn dications:Helicob acter pylori gastritis Take 2 tablets (524 mg total) by mouth 4 (four) times a day before meals and nightly for 10 days 80 tablet 07/17/20 025 Discontinued Active Problems Problem Noted Date Diagnosed Date [...] AM Assessment & Plan (11/01/2024 4:55 PM REDRAWER): Patient with intermittent LUQ pain for 2 [...] biopsy result - plan to likely discharge 12/13 AM - will need referral to outpatient [...] daily. Assessment & Plan (10/31/2024 5:17 AM REDRAWER): Continue home Zoloft Ovarian cyst 10/31/2024 Assessment & Plan (10/31/2024 8:53 PM REDRAWER): Large ovarian cyst seen incidentally on CT [...] AM CDT): Complicates prognosis and hospital course. Encounters Date Type Department Care Team Description 5 10:30 AM CDT Infusion [facility] - Infusion [address] [facility] Floor 5 [place] [address] Pancreatic adenocarcinoma (HCC) (Primary Dx); Prophylaxis for chemotherapy-induced neutropenia 5 9:20 AM CDT Office Visit [facility] Medicine Oncology [address] [facility] Floor 5 [place] [address] Felix Simmons MD Pancreatic adenocarcinoma (HCC) (Primary Dx); Prophylaxis for chemotherapy-induced neutropenia 5 8:15 AM CDT Clinical Support [facility] - Lab Collection [address] [facility] Floor 5 [place] [address] Pancreatic adenocarcinoma (HCC); Prophylaxis for chemotherapy-induced neutropenia 5 Orders Only [facility] Medicine Gastroenterolog y [address] [facility] 12th [place] [address] [place] [address] Juan Moreno MD Helicobacter pylori gastritis (Primary Dx) 5 12:30 PM CDT Office Visit [facility] at [address] [address] Corie Langley NP Left hip pain (Primary Dx) 5 Results Follow-Up [facility] Medicine Gastroenterolog y [address] [facility] 12th [place] [address] [place] [address] Juan Moreno MD Surgical pathology 5 1:55 PM CDT Ancillary Procedure [facility] Medicine Vascular Lab IP [address] [facility] [address] [place] [address] 5 12:25 PM CDT - 5 1:10 PM CDT Surgery [facility] [address] [facility] [address] [place] [address] Juan Moreno MD ESOPHAGOGASTRODUODENOSCOPY BIOPSY 5 8:58 AM CDT Anesthesia Event [facility] [address] [facility] [address] [place] [address] Damon Jose MD [place], Taylor Lynn, CRNA 5 Orders Only [facility] Medicine Oncology [address] [place] [address] 5 [place] [address] Chiquita Dominguez RN Pancreatic adenocarcinoma (HCC) (Primary Dx); Prophylaxis for chemotherapy-induced neutropenia 5 9:20 PM CDT - 5 4:43 PM CDT Hospital Encounter [address] [address] Felix Simmons MD Natour, Bashar, MD Dement, Windy Casey MD Pain in the abdomen (Primary Dx); Vomiting without nausea, unspecified vomiting type Discharge Disposition: Discharge to home or self care 5 6:46 PM CDT - 5 11:59 PM CDT Hospital Encounter [facility] [address] [place] [address] Discharge Disposition: Discharge to home or self care 5 Documentation [facility]) [address] [place] [address] Karyn Jarrell NP 5 Telephone [facility] Oncology [address] [place] [address] 5 [place] [phone] Chiquita Dominguez RN 5 11:00 AM CDT Infusion [facility] - Infusion [address] [place] [address] Floor 5 [place] [address] Prophylaxis for chemotherapy-induced neutropenia (Primary Dx); Pancreatic adenocarcinoma (HCC) 5 10:00 AM CDT Office Visit [facility] Oncology [address] [place] [address] 5 [place] [phone] Gabriella Rosas NP Pancreatic adenocarcinoma (HCC) (Primary Dx); Prophylaxis for chemotherapy-induced neutropenia 5 9:00 AM CDT Clinical Support [facility] - Lab Collection [address] 5 [place] [address] Pancreatic adenocarcinoma (HCC); Prophylaxis for chemotherapy-induced neutropenia 5 11:00 AM CDT Infusion [facility] - Infusion [address] Floor 5 [place] [address] Prophylaxis for chemotherapy-induced neutropenia (Primary Dx); Pancreatic adenocarcinoma (HCC) 5 10:00 AM CDT Office Visit [facility] Oncology [address] [facility] Floor 5 [place] [phone] Felix Simmons MD Pancreatic adenocarcinoma (HCC) (Primary Dx); Prophylaxis for chemotherapy-induced neutropenia 5 9:00 AM CDT Clinical Support [facility] Oncology Lab [address] [facility] Floor 5 [place] [address] Pancreatic adenocarcinoma (HCC); Prophylaxis for chemotherapy-induced neutropenia 5 8:45 AM CDT Clinical Support [facility] - Lab Collection [address] 5 [place] [address] Pancreatic adenocarcinoma (HCC); Prophylaxis for chemotherapy-induced neutropenia 5 3:57 PM CDT - 5 11:59 PM CDT Hospital Encounter [facility] [place] [address] 8 [place] [address] Pancreatic adenocarcinoma (HCC) Discharge Disposition: Discharge to home or self care 5 Telephone [facility] Radiation Oncology [address] [facility] [place] [address] Hollie Carver, LATOYA 5 Documentation [facility] Radiation Oncology [address] [facility] [place] [address] Hollie Carver, LATOYA 5 Telephone [facility] Oncology [address] [facility] Floor 5 [place] [address] Chiquita Dominguez RN 5 10:30 AM CDT Telemedicine [facility] Psychiatry [address] [place] [address] [address] [place] [phone] Adalberto Sweeney MD Other depression (Primary Dx) 5 Telephone [facility] Psychiatry [address] [facility] [address] [place] [phone] Adalberto Sweeney MD 5 Documentation [facility] Radiation Oncology [address] [place] [address] Hollie Carver RN 5 7:14 AM CDT - 5 11:59 PM CDT Hospital Encounter [facility] Radiation Oncology [facility] [place] [address] Fidel Reese MD PhD Discharge Disposition: Discharge to home or self care 5 Completion of Therapy [facility] Radiation Oncology [address] [place] [address] Fidel Reese MD PhD 5 Orders Only RAD ONC TREATMENTS Miscellaneous , Not In File 5 7:39 AM CDT - 5 11:59 PM CDT Hospital Encounter [facility] Radiation Oncology [address] [place] [address] Fidel Reese MD PhD Discharge Disposition: Discharge to home or self care 5 Orders Only RAD ONC TREATMENTS Miscellaneous , Not In File 5 7:31 AM CDT - 5 11:59 PM CDT Hospital Encounter [facility] Radiation Oncology [address] [place] [address] Fidel Reese MD PhD Discharge Disposition: Discharge to home or self care 5 Orders Only RAD ONC TREATMENTS Miscellaneous , Not In File 5 7:22 AM CDT - 5 11:59 PM CDT Hospital Encounter [facility] Radiation Oncology [address] [facility] [place] [address] Fidel Reese MD PhD Discharge Disposition: Discharge to home or self care 5 Orders Only RAD ONC TREATMENTS Miscellaneous , Not In File 5 7:33 AM CDT - 5 11:59 PM CDT Hospital Encounter [facility] Radiation Oncology [address] [facility] [place] [address] Fidel Reese MD PhD Discharge Disposition: Discharge to home or self care 5 OTV [facility] Radiation Oncology [address] [facility] [place] [address] Fidel Reese MD PhD 5 Orders Only RAD ONC TREATMENTS Miscellaneous , Not In File 5 1:48 PM CDT - 5 11:59 PM CDT Hospital Encounter [facility] [address] [place] [address] Discharge Disposition: Discharge to home or self care 5 1:00 PM CDT - 5 6:14 PM CDT Hospital Encounter [facility]) [address] [place] [address] Pancreatic adenocarcinoma (HCC) (Primary Dx); Gastric outlet obstruction Discharge Disposition: Discharge to home or self care 5 [facility]phone [facility] 5 [place] [address] Chiquita Dominguez RN 5 12:30 PM CDT Clinical Support [facility] [place] - Lab Collection [address] [facility] Floor 5 [place] [address] 5 12:00 PM CDT [facility] 5 [place] [address] Felix Simmons MD Pancreatic adenocarcinoma (HCC) (Primary Dx) 5 11:00 AM CDT Clinical Support [facility] [place] - Lab Collection [address] [facility] 5 [place] [address] Pancreatic adenocarcinoma (HCC); Prophylaxis for chemotherapy-induced neutropenia 5 8:43 AM CDT - 5 11:59 PM CDT Hospital Encounter [facility] Radiation Oncology [facility] [place] [address] Fidel Reese MD PhD Discharge Disposition: Discharge to home or self care 5 7:57 AM CDT - 5 11:59 PM CDT Hospital Encounter [facility] Radiation Oncology [address] [place] [address] Fidel Reese MD PhD Discharge Disposition: Discharge to home or self care 5 Telephone [facility] Radiation Oncology [address] [place] [address] Maricruz Hyatt RN 5 Telephone [facility] Medicine Oncology [address] [facility] 5 [place] [phone] Chiquita Dominguez, LATOYA from Last 3 Months Immunizations Immunization Administration Dates Next Due Influenza, Quadrivalent, Spl it, Preservative Free, Intramuscular 11/04/2020 Influenza, Unspecified 08/21/2024,08/31/2023,11/2018 MMR 06/05/2018 MMRV 06/05/2018 Td, adsorbed 12/26/2024 Tdap 10/13/2021,01/03/2020 ZOSTER Recombinant 10/24/2024,08/02/2024 Surgical History Surgery Date Site/Laterality Comments BREAST BIOPSY 06/02/2021 Right ABLATION 11/21/2015 - 11/20/2016 DILATION AND CURETTAGE OF UTERUS 11/21/2015 - 11/20/2016 COLONOSCOPY PORT PLACEMENT CHEST >5 YEARS 11/16/2024 N/A UPPER GASTROINTESTINAL ENDOSCOPY Medical History Medical History Date Comments Anxiety Prophylaxis for chemotherapy-induced neutropenia 01/09/2025 Family History Medical History Relation Name Comments MVA Brother 1 COD No Known Problems Brother 2 No Known Problems Daughter [place] Breast cancer Father age? pt has christian alfredo info about this history Kidney cancer Father Melanoma Father's Brother Kidney cancer Father's Sister 1 not COD Ovarian cancer Father's Sister 2 COD Breast cancer Maternal Grandmother not CO D Breast cancer Paternal Grandmother COD Breast cancer Paternal cousin 1 Kidney cancer Paternal cousin 2 No Known Problems Son Yanick Relation Name Status Comments Brother 1 (Age 19) Brother 2 Alive Daughter [place] Alive Father (Age 75) Father's Brother Alive Father's Sister 1 Alive Father's Sister 2 (Age 63) Maternal Grandfather (Age 80) Maternal Grandmother (Age 56) Mother (Age 72) Paternal Grandfather (Age 70) Paternal Grandmother (Age 72) Paternal cousin 1 Alive Paternal cousin 2 (Age 65) Sister Alive Son Yanick Alive Social History Tobacco Use Types Packs/Day Years Used Date Smoking Tobacco: Never Tobacco Cessation:Counseling Given: Not Answered Alcohol Use Standard Drinks/Week Comments Yes 2 [...] on file Legal Sex Female 1:13 PM REDRAWER Gender Identity Not on file Sexual Orientation Not on file Obstetrics History Last Filed Vital Signs Vital Sign Reading [...] oz) 07/24/2025 9:08 A M CDT Height 170.2 cm (5' 7) 07/11/2025 8:54 AM CDT Body Mass Index 26.97 07/11/2025 8:54 AM CDT Plan of Treatment Health Maintenance Due Date Last Done Comments Colon Cancer Screening-Colonoscopy 1964 Depression Screening 1964 Hepatitis C Screening 1964 Hepatitis B Screening 1982 Regular Well Visit/Exam 18-64 1982 Pneumococcal vaccine <65 (1 of 2 - PCV) 1983 Cervical Cancer Screening 04/16/2022 04/16/2021 Breast Cancer Screening-Mammogram 05/01/2022 021 Covid-19 Vaccine (4 - 2024-2 6 season) 2025 10/13/2021, 12/09/2020, 11/20/2020 Influenza Vaccine (#1) 2025 , 08/31/2023, 11/04/2020, Additional history exists DTaP/Tdap/Td Vaccine (4 - Td or Tdap) 12/26/2034 12/26/2024, 10/13/2021, 01/03/2020 Zoster Vaccine Completed 10/24/2024, 08/02/2024 Medical Devices Implanted Type Area Medical Clerk Device Identifier Shelf Expiration Date Model / Serial / Lot [employer] Axios 10 X 20 Stent Delivery System [id number] - [id number] Implanted:Qty: 1 on 03/08/2025 by Karyn Lees DO at [facility] Stent Stomach [employer] 12/21/2025 [id number] / / [id number] Description:[employer] Xcela Power Port 8fr [id number] - [id number] Implanted:Qty: 1 on 11/16/2024 at [facility] [employer] 05/20/2029 [id number] / / [id number] Procedures Procedure Name Priority Date/Time Associated Diagnosis Comments EGFR STAT 07/24/2025 8:39 AM CDT Pancreatic adenocarcinoma (HCC) Prophylaxis for chemotherapy-susan sean neutropenia DIFFERENTIAL AUTO Routine 07/24/2025 8:39 AM CDT Pancreatic adenocarcinoma (HCC) Prophylaxis for chemotherapy-susan sean neutropenia CANCER ANTIGEN 19-9 Routine 07/24/2025 8:39 AM CDT Pancreatic adenocarcinoma (HCC) Prophylaxis for chemotherapy-susan sean neutropenia CBC WITH AUTO DIFFERENTIAL Routine 07/24 8:39 AM CDT Pancreatic adenocarcinoma (HCC) Prophylaxis for chemotherapy-susan sean neutropenia COMPREHENSIVE METABOLIC PANEL STAT 8:39 AM CDT Pancreatic adenocarcinoma (HCC) Prophylaxis for chemotherapy-susan sean neutropenia FL UPPER GI SERIES, SINGLE CONTRAST IP Routine 07/12/2025 9:31 AM CDT EGFR Routine 07/11/2025 9:01 PM CDT DIFFERENTIAL AUTO Routine 07/11/2025 9:01 PM CDT PHOSPHORUS Routine 07/11/2025 9:01 PM CDT COMPREHENSIVE METABOLIC PANEL Routine 9:01 PM CDT CBC WITH AUTO DIFFERENTIAL Routine 07/11 9:01 PM CDT US VEIN DUPLEX LOWER EXTREMI TY BILATERAL COMPLETE IP Routine 07/11/2025 3:02 PM CDT SURGICAL PATHOLOGY Routine 07/11/2025 9:14 AM CDT Pain in the abdomen Vomiting without nausea, unspecified vomiting type EGD 07/11/2025 9:09 AM CDT ESOPHAGOGASTRODUODENOSCOPY BIOPSY 07/11/2025 8:58 AM CDT Pain in the abdomen Vomiting without nausea, unspecified vomiting type EGFR Routine 07/10/2025 8:32 PM CDT DIFFERENTIAL AUTO Routine 07/10/2025 8:32 PM CDT PROTIME-INR Routine 07/10/2025 8:32 PM CDT APTT Routine 07/10/2025 8:32 PM CDT TYPE AND SCREEN Timed 07/10/2025 8:32 PM CDT PHOSPHORUS Routine 07/10/2025 8:32 PM CDT COMPREHENSIVE METABOLIC PANEL Routine 8:32 PM CDT CBC WITH AUTO DIFFERENTIAL Routine 07/10 8:32 PM CDT PROTIME-INR Routine 07/09/2025 11:[address] ABDOMEN PELVIS W CONTRAST ED Urgent/I P Urgent 07/09/2025 7:18 PM CDT POC BLOOD GAS AND CHEMISTRIE S, ARTERIAL Routine 07/09/2025 7:00 PM CDT EGFR STAT 07/09/2025 6:57 PM CDT DIFFERENTIAL AUTO STAT 07/09/2025 6:57 PM CDT MAGNESIUM STAT 07/09/2025 6:57 PM CDT COMPREHENSIVE METABOLIC PANEL STAT 6:57 PM CDT CBC WITH AUTO DIFFERENTIAL STAT 07/09 6:57 PM CDT EGFR STAT 06/26/2025 8:57 AM CDT Pancreatic adenocarcinoma (HCC) Prophylaxis for chemotherapy-susan sean neutropenia DIFFERENTIAL AUTO Routine 06/26/2025 8:57 AM CDT Pancreatic adenocarcinoma (HCC) Prophylaxis for chemotherapy-susan sean neutropenia COMPREHENSIVE METABOLIC PANEL STAT 8:57 AM CDT Pancreatic adenocarcinoma (HCC) Prophylaxis for chemotherapy-susan sean neutropenia CBC WITH AUTO DIFFERENTIAL Routine 06/26 8:57 AM CDT Pancreatic adenocarcinoma (HCC) Prophylaxis for chemotherapy-susan sean neutropenia EGFR STAT 06/12/2025 9:28 AM CDT Pancreatic adenocarcinoma (HCC) Prophylaxis for chemotherapy-susan sean neutropenia DIFFERENTIAL AUTO Routine 06/12/2025 9:28 AM CDT Pancreatic adenocarcinoma (HCC) Prophylaxis for chemotherapy-susan sean neutropenia CANCER ANTIGEN 19-9 Routine 06/12/2025 9:28 AM CDT Pancreatic adenocarcinoma (HCC) Prophylaxis for chemotherapy-susan sean neutropenia CBC WITH AUTO DIFFERENTIAL Routine 06/12 9:28 AM CDT Pancreatic adenocarcinoma (HCC) Prophylaxis for chemotherapy-susan sean neutropenia COMPREHENSIVE METABOLIC PANEL STAT 9:28 AM CDT Pancreatic adenocarcinoma (HCC) Prophylaxis for chemotherapy-susan sean neutropenia CT CHEST ABDOMEN PELVIS W CONTRAST Schedule Routine, Read Routine (OP Routine) 06/10/2025 4:30 PM CDT Pancreatic adenocarcinoma (HCC) RAD ONC ARIA SESSION SUMMARY 8:30 AM CDT RAD ONC ARIA SESSION SUMMARY 9:52 AM CDT RAD ONC ARIA SESSION SUMMARY 9:13 AM CDT RAD ONC ARIA SESSION SUMMARY 9:18 AM CDT RAD ONC ARIA SESSION SUMMARY 9:[address] ABDOMEN PELVIS W CONTRAST ED Urgent/I P Urgent 05/02/2025 2:10 PM CDT Pancreatic adenocarcinoma (HCC) EGFR STAT 05/02/2025 1:30 PM CDT Pancreatic adenocarcinoma (HCC) DIFFERENTIAL AUTO STAT 05/02/2025 1:30 PM CDT Pancreatic adenocarcinoma (HCC) COMPREHENSIVE METABOLIC PANEL STAT 1:30 PM CDT Pancreatic adenocarcinoma (HCC) CBC WITH AUTO DIFFERENTIAL STAT 05/02 1:30 PM CDT Pancreatic adenocarcinoma (HCC) ECG 12-LEAD STAT 05/02/2025 1:28 PM CDT Pancreatic adenocarcinoma (HCC) EGFR STAT 05/01/2025 11:00 AM CDT Pancreatic adenocarcinoma (HCC) Prophylaxis for chemotherapy-susan sean neutropenia DIFFERENTIAL AUTO Routine 05/01/2025 11:00 AM CDT Pancreatic adenocarcinoma (HCC) Prophylaxis for chemotherapy-susan sean neutropenia CBC WITH AUTO DIFFERENTIAL Routine 05/01 11:00 AM CDT Pancreatic adenocarcinoma (HCC) Prophylaxis for chemotherapy-susan sean neutropenia COMPREHENSIVE METABOLIC PANEL STAT 11:00 AM CDT Pancreatic adenocarcinoma (HCC) Prophylaxis for chemotherapy-susan sean neutropenia from Last 3 Months Results * eGFR (07/24/2025 8:39 AM CDT) Pathologist [facility] eGFR >90 >=60 mL/min/1. 73 m2 Comment: [...] 8:39 AM CDT 07/24/2025 8:42 AM CDT us Felix Simmons MD LAB BLOOD ORDERABLES Final Result [facility] [place] [address] * Differential, auto (07/24/2025 8:39 AM CDT) Neutrophil abs 4.53 1.50 - 6.50 K/cumm Comment:Testing performed by : [facility]e [facility], [address] [place] [address] Lymphocyte abs 1.89 0.80 - 3.30 K/cumm [facility] Comment:Testing performed by : [facility], [address] [place], [place] [phone] Monocyte abs 0.79 0.20 - 0.80 K/cumm TACOS [facility] Comment:Testing performed by : [facility], [address] [place], [place] [phone] Eosinophil abs 0.13 0.00 - 0.50 K/cumm [facility] Comment:Testing performed by : [facility], [address] [place], [place] [phone] Basophil abs 0.07 0.00 - 0.10 K/cumm [facility] Comment:Testing performed by : [facility], [address] [place], [place] [phone] Neutrophil pct 61.1 % [facility] Comment: Interpretive Data Percent cell count reference ranges are not reported, since discordance with absolute values may lead to misinterpretation of CBC data. Current Interpretive Data was last revised on 2018. Testing performed by: [facility], [address] [place] [phone] Lymphocyte pct 25.5 % [facility] Comment: Interpretive Data Percent cell count reference ranges are not reported, since discordance with absolute values may lead to misinterpretation of CBC data. Current Interpretive Data was last revised on 2018. Testing performed by: [facility], [address] [place] [phone] Monocyte pct 10.6 % [facility] Comment: Interpretive Data Percent cell count reference ranges are not reported, since discordance with absolute values may lead to misinterpretation of CBC data. Current Interpretive Data was last revised on 2018. Testing performed by: [facility], [address] [place] [address] Eosinophil pct 1.8 % [facility] Comment: Interpretive Data Percent cell count reference ranges are not reported, since discordance with absolute values may lead to misinterpretation of CBC data. Current Interpretive Data was last revised on 2018. Testing performed by: [facility], [address] [place] [phone] Basophil pct 0.9 % CERNER BJ Comment: Interpretive Data Percent cell count reference ranges are not reported, since discordance with absolute values may lead to misinterpretation of CBC data. Current Interpretive Data was last revised on 2018. Testing performed by: [facility], [address] [place] [phone] Blood 07/24/2025 8:39 AM CDT 07/24/2025 8:41 AM CDT us Felix Simmons MD LAB BLOOD ORDERABLES Final Result [facility] [place] [address] * (ABNORMAL) CBC with auto differential (07/24/2025 8:39 AM CDT) WBC 7.41 3.80 - 9.90 K/cumm Comment:Testing performed by : [facility], [address] [place] [address] Hgb 11.7(L) 11.9 - 15.5 g/dL CERNER BJ Comment:Testing performed by : [facility], [address] [place] [address] Hct 34.5(L) 35.6 - 45.5 % CERNER BJ Comment:Testing performed by : [facility], [address] [place] [address] Plt 370 150 - 400 K/cumm CERNER BJ Comment:Testing performed by : [facility], [address] [place] [address] MPV 6.9 6.8 - 10.4 fL CERNER BJ Comment:Testing performed by : [facility], [address] [place] [address] RBC 3.91 3.90 - 5.20 M/cumm CERNER BJ Comment:Testing performed by : [facility], [address] [place] [address] MCV 88.2 81.3 - 96.4 fL CERNER BJ Comment:Testing performed by : [facility], [address] [place] [address] MCH 30.0 27.1 - 33.3 pg CERNER BJ Comment:Testing performed by : [facility], [address] [place] [address] MCHC 34.0 32.3 - 35.7 g/dL CERNER BJ Comment:Testing performed by : [facility], [address] [place] [address] RDW CV 18.3(H) 11.1 - 14.9 % CERNER BJ Comment:Testing performed by : [facility], [address] [place] [address] NRBC abs 0.00 0.00 - 0.01 K/cumm [facility] Comment:Testing performed by : [facility], [address] [place] [phone] Blood 07/24/2025 8:39 AM CDT 07/24/2025 8:41 AM CDT Felix Simmons MD LAB BLOOD ORDERABLES Final Result Performing Organization Address [facility] Co de Phone Number [facility] Department [place] [address] * (ABNORMAL) Cancer antigen 19-9 (07/24/2025 8:39 AM CDT) [facility] [place] 19-9 ag 39.1(H) <=35.0 units/mL Comment: Interpretive Data The [employer] [place] 19-9 assay procedure was used. Results from different manufacturers or methods may not be comparable. Serial testing should be performed using the same method. Blood 07/24/2025 8:39 AM CDT 07/24/2025 9:00 AM CDT Felix Simmons MD LAB BLOOD ORDERABLES Final Result Performing Organization Address [facility] de Phone Number [facility] [place] [address] * Comprehensive metabolic panel (07/24/2025 8:39 AM CDT) [facility] Sodium 139 135 - 145 mmol/L Potassium, pl 4.2 3.3 - 4.9 mmol/L [facility] Chloride 103 97 - 110 mmol/L [facility] CO2 27 22 - 32 mmol/L [facility] Anion gap 9 2 - 15 mmol/L [facility] BUN 15 6 - 25 mg/dL [facility] Creatinine 0.66 0.60 - 1.10 mg/dL [facility] Glucose 109 70 - 199 mg/dL [facility] Comment: Interpretive Data Fasting glucose >/= 126 [...] 2022. Calcium 9.5 8.5 - 10.3 mg/dL CERNER [facility] Bilirubin, total 0.5 0.1 - 1.2 mg/dL CERNER [facility] Protein, pl 7.0 6.5 - 8.5 g/dL CERNER BJ Albumin 3.9 3.5 - 5.0 g/dL CERNER [facility] Alk phos 90 40 - 130 Units/L CERNER BJ ALT 26 7 - 45 Units/L CERNER BJ AST 22 10 - 45 Units/L CERNER [facility] Blood 07/24/2025 8:39 AM CDT 07/24/2025 8:42 AM CDT us Felix Simmons MD LAB BLOOD ORDERABLES Final Result [facility] [place] [address] * FL Upper GI Series, Single Contrast (07/12/2025 9:31 AM CDT) Anatomical Region Laterality Modality Body N/A Radio Fluoroscop y 07/12/2025 9:49 AM CDT Impressions 07/12/2025 9:54 AM CDT Contrast opacification of duodenal C-sweep as well as GJ lumen apposing metal stent into further portions of jejunum without evidence of obstruction or leak. Dictated by: Kayleigh Rockwell M.D. The radiology attending physician has personally reviewed this study, and had reviewed and/or edited this written report and agrees with it. Electronically signed by: Latesha Peterson M.D. Narrative 07/12/2025 9:54 AM CDT EXAMINATION: UPPER GASTROINTESTINAL EXAMINATION HISTORY: 60-year-old with pancreatic adenocarcinoma woman with lumen apposing metal stent between the stomach and jejunum TECHNIQUE: After a assembly supervisor radiograph was obtained, the patient was given water soluble contrast to drink, and multiple fluoroscopic and conventional overhead radiographs of the esophagus, stomach, and duodenum were obtained. FINDINGS: There is passage of oral contrast down the esophagus and into the stomach. There is opacification of the duodenal C sweep. There is also opacification through the GJ lumen apposing metal stent conduit into further portions of the small bowel. There is no evidence of obstruction or leak. Procedure Note Latesha Peterson MD - 07/12/2025 EXAMINATION: UPPER GASTROINTESTINAL EXAMINATION HISTORY: 60-year-old with pancreatic adenocarcinoma woman with lumen apposing metal stent between the stomach and jejunum TECHNIQUE: After a assembly supervisor radiograph was obtained, the patient was given water soluble contrast to drink, and multiple fluoroscopic and conventional overhead radiographs of the esophagus, stomach, and duodenum were obtained. FINDINGS: There is passage of oral contrast down the esophagus and into the stomach. There is opacification of the duodenal C sweep. There is also opacification through the GJ lumen apposing metal stent conduit into further portions of the small bowel. There is no evidence of obstruction or leak. IMPRESSION: Contrast opacification of duodenal C-sweep as well as GJ lumen apposing metal stent into further portions of jejunum without evidence of obstruction or leak. Dictated by: Kayleigh Rockwell M.D. The radiology attending physician has personally reviewed this study, and had reviewed and/or edited this written report and agrees with it. Electronically signed by: Latesha Peterson M.D. us Windy Major MD IMG FLUOROSCOPY PROCEDURE S Final Result * eGFR (07/11/2025 9:01 PM CDT) eGFR 89 >=60 mL/min/1. 73 m2 Comment: Interpretive Data [...] of Race in Diagnosing Kidney Disease, JASN 202). The CKD-EPI equation should not be used for patients with unstable renal function and has not been validated in children and those over 70. Current interpretive data was last reviewed 2021. Blood 07/11/2025 9:01 PM CDT 07/11/2025 9:46 PM CDT us Thad Vang MD LAB BLOOD ORDERABLES Final Resu lt [facility] [place] [address] * Differential, auto (07/11/2025 9:01 PM CDT) Neutrophil abs 2.72 1.50 - 6.50 K/cumm Imm gran abs 0.01 0.00 - 0.10 K/cumm [facility] Lymphocyte abs 1.60 0.80 - 3.30 K/cumm [facility] Monocyte abs 0.51 0.20 - 0.80 K/cumm [facility] Eosinophil abs 0.05 0.00 - 0.50 K/cumm [facility] Basophil abs 0.02 0.00 - 0.10 K/cumm [facility] Neutrophil pct 55.4 % [facility] Comment: Interpretive Data Percent cell count reference ranges are not reported, since discordance with absolute values may lead to misinterpretation of CBC data. Current Interpretive Data was last revised on 2018. Imm gran pct 0.2 % [facility] Comment: Interpretive Data Percent cell count reference ranges are not reported, since discordance with absolute values may lead to misinterpretation of CBC data. Current Interpretive Data was last revised on 2018. Lymphocyte pct 32.6 % [facility] Comment: Interpretive Data Percent cell count reference ranges are not reported, since discordance with absolute values may lead to misinterpretation of CBC data. Current Interpretive Data was last revised on 2018. Monocyte pct 10.4 % [facility] Comment: Interpretive Data Percent cell count reference ranges are not reported, since discordance with absolute values may lead to misinterpretation of CBC data. Current Interpretive Data was last revised on 2018. Eosinophil pct 1.0 % [facility] Comment: Interpretive Data Percent cell count reference ranges are not reported, since discordance with absolute values may lead to misinterpretation of CBC data. Current Interpretive Data was last revised on 2018. Basophil pct 0.4 % [facility] Comment: Interpretive Data Percent cell count reference ranges are not reported, since discordance with absolute values may lead to misinterpretation of CBC data. Current Interpretive Data was last revised on 2018. Blood 07/11/2025 9:01 PM CDT 07/11/2025 9:46 PM CDT us Thad Vang MD LAB BLOOD ORDERABLES Final Resu lt [facility] [place] [address] * (ABNORMAL) CBC with auto differential (07/11/2025 9:01 PM CDT) WBC 4.91 3.80 - 9.90 K/cumm Hgb 9.9(L) 11.9 - 15.5 g/dL [facility] Hct 30.7(L) 35.6 - 45.5 % [facility] Plt 207 150 - 400 K/cumm [facility] MPV 9.7 9.1 - 12.3 fL [facility] RBC 3.38(L) 3.90 - 5.20 M/cumm [facility] MCV 90.8 81.3 - 96.4 fL [facility] MCH 29.3 27.1 - 33.3 pg [facility] MCHC 32.2(L) 32.3 - 35.7 g/dL [facility] RDW CV 16.2(H) 11.1 - 14.9 % [facility] RDW SD 52.9(H) 35.7 - 48.1 fL [facility] NRBC abs 0.00 0.00 - 0.01 K/cumm [facility] Blood 07/11/2025 9:01 PM CDT 07/11/2025 9:46 PM CDT Thad Vang MD LAB BLOOD ORDERABLES Final Resu lt Performing Organization Address City/[facility]/ZIP Co de Phone Number [facility] [place] [address] * Phosphorus (07/11/2025 9:01 PM CDT) Pathologist [facility] Phosphorus, pl 3.4 2.3 - 4.5 mg/dL Blood 07/11/2025 9:01 PM CDT 07/11/2025 9:46 PM CDT Thad Vang MD LAB BLOOD ORDERABLES Final Resu lt Performing Organization Address City/[facility] Co de Phone Number [facility] [place] [address] * (ABNORMAL) Comprehensive metabolic panel (07/11/2025 9:01 PM CDT) [facility] Sodium 147(H) 135 - 145 mmol/L Potassium, pl 4.0 3.3 - 4.9 mmol/L [facility] Chloride 112(H) 97 - 110 mmol/L [facility] CO2 26 22 - 32 mmol/L [facility] Anion gap 9 2 - 15 mmol/L [facility] BUN 5(L) 6 - 25 mg/dL [facility] Creatinine 0.76 0.60 - 1.10 mg/dL [facility] Glucose 119 70 - 199 mg/dL [facility] Comment: Interpretive Data Fasting glucose >/= 126 [...] interpretive data was last revised 2022. Calcium 9.2 8.5 - 10.3 mg/dL CERNER [facility] Bilirubin, total 0.2 0.1 - 1.2 mg/dL CERNER [facility] Protein, pl 6.7 6.5 - 8.5 g/dL CERNER [facility] Albumin 3.6 3.5 - 5.0 g/dL [facility] Alk phos 81 40 - 130 Units/L [facility] ALT 59(H) 7 - 45 Units/L CERNER [facility] AST 36 10 - 45 Units/L [facility] Blood 07/11/2025 9:01 PM CDT 07/11/2025 9:46 PM CDT us Thad Vang MD LAB BLOOD ORDERABLES Final Resu lt [facility] [place] [address] * US Vein Duplex Lower Extremity Bilateral Complete (07/11/2025 3:02 PM CDT) Anatomical Region Laterality Modality Vascular Bilateral Ultrasound 07/11/2025 2:18 PM CDT Narrative 07/11/2025 5:44 PM CDT [employer] - Department of Vascular Surgery, Vascular Laboratory [address] [place] [phone] Lower Extremity Venous Ultrasound Report Patient Name: EDY ARCOS : 1965 (60y 1m) Study Date: 07/11/2025 2:18:36 PM Gender: F Tech: GERARD Location: [id number] Ref Provider: ANIL, WINDY Quality: Adequate Order Provider: WINDY MAJOR PROCEDURES: Vascular Report: Venous Duplex imaging was performed bilaterally in the lower extremities. The common femoral, femoral, popliteal, posterior tibial, peroneal veins were evaluated for patency, spontaneity and phasicity with Doppler, compression and augmentation maneuvers. Great saphenous vein proximal at the junction was evaluated with compression maneuvers. INDICATIONS: Pain in left foot. FINDINGS: Performing Center Mgr: Lazara De Santiago RVT. Bilateral: Venous Doppler signals in the bilateral lower extremity are within normal limits for spontaneity and phasicity and respond normally to augmentation maneuvers. No evidence of deep vein thrombus by duplex, proximal to the calf. CONCLUSIONS: 1. There is no evidence of acute deep vein thrombosis in the lower extremities bilaterally. Noninvasive venous studies cannot rule out isolated calf vein obstruction. HISTORY: Not identified. PREVIOUS STUDIES: No previous studies for comparison. DISCLAIMER: The study images and the final report will be retained in the patient chart by the Vascular Laboratory for the legally required time period. This chart constitutes the legal record of any testing performed. ATTESTATION: I have reviewed and interpreted the pertinent images and measurements of this study. I attest to the conclusions in the final report that is provided above. Electronically Signed By: Raudel Slaughter MD FACS 07/11/2025 4:49:55 PM CDT Procedure Note Raudel Slaughter MD - 08/21/2025 [facility] - Department of Vascular Surgery,Vascular Laboratory [address] [place] [id number] Lower Extremity Venous Ultrasound Report Patient Name: EDY ARCOS : 1965 (60y 1m) Study Date: 07/11/2025 2:18:36 PM Gender: F Tech: GERARD Location: [id number] Ref Provider: WINDY MAJOR Quality: Adequate Order Provider: WINDY MAJOR PROCEDURES: Vascular Report: Venous Duplex imaging was performed bilaterally in the lower extremities.The common femoral, femoral, popliteal, posterior tibial, peroneal veins wereevaluated for patency, spontaneity and phasicity with Doppler, compression and augmentationmaneuvers. Great saphenous vein proximal at the junction was evaluated with compressionmaneuvers. INDICATIONS: Pain in left foot. FINDINGS: Performing Center Mgr: Lazara De Santiago RVT. Bilateral: Venous Doppler signals in the bilateral lower extremity are within normallimits for spontaneity and phasicity and respond normally to augmentation maneuvers.No evidence of deep vein thrombus by duplex, proximal to the calf. CONCLUSIONS: 1. There is no evidence of acute deep vein thrombosis in the lowerextremities bilaterally. Noninvasive venous studies cannot rule out isolated calf veinobstruction. HISTORY: Not identified. PREVIOUS STUDIES: No previous studies for comparison. DISCLAIMER: The study images and the final report will be retained in the patientchart by the Vascular Laboratory for the legally required time period. This chartconstitutes the legal record of any testing performed. ATTESTATION: I have reviewed and interpreted the pertinent images and measurements ofthis study. I attest to the conclusions in the final report that is provided above. Electronically Signed By: Raudel Slaughter MD [facility] 07/11/2025 4:49:55 PM CDT Windy Major MD [facility] PROCEDURES Final R esult * Surgical pathology (07/11/2025 9:14 AM CDT) Tissue (Gastric/Stomach biopsy) 07/11/2025 9:14 AM CDT Narrative PATHOLOGY [facility] - 07/16/2025 9:58 AM CDT EPIC results best viewed via link to PDF [facility] [place] [address] Note to Patients: This report may contain a detailed description of human tissue sent by a health care provider to the laboratory for pathologic evaluation. The content of this report is essential for diagnosis and may provide important critical findings. This information may be unfamiliar to patients to review without a medical professional present. It is advised that the patient review this report in the presence of a health care provider who can answer questions and explain the details. SURGICAL PATHOLOGY REPORT FINAL Patient Name: EDY ARCOS Gender: F : 1965 (Age: 60) Address: [address] [place] [id number] Hospital #: [id number] Taken:07/11/2025 Received:07/11/2025 Reported: 07/16/2025 Patient Type: [facility] Inpatient Service: Oncology Location: [facility] [address] Physician(s): Nichelle Boone D.O. [place], [place] Diagnosis: Stomach, random, biopsy - Gastric antral and oxyntic gland mucosa with H. pylori-associated chronic active gastritis - Rare H. pylori organisms identified (positive immunohistochemical stain) - Negative for intestinal metaplasia, dysplasia, or malignancy edison07/12/2025 11:00 By this signature, I attest that the above diagnosis is based upon my personal examination of the slides(and/or other material indicated in the diagnosis). Catalino Joseph M.D. Report Electronically Reviewed and Signed Out By Catalino Joseph M.D. 07/16/2025 09:58:49 Shae Harris M.D. History: The patient is a 60-year-old woman presenting with pain in the abdomen vomiting without nausea, unspecified vomiting type. Operative procedure: Upper endoscopy biopsy. Specimen(s) Received: A: Random gastric biopsies Gross Description: Received in formalin, labeled with the patient s identifiers and random gastric biopsies and consists of one leiva fragment(s) of soft tissue measuring 0.9 cm in greatest dimension. Labeled A1. Jar 0. [facility]07/11/2025 12:53 PA(s): Erinn Childs By this signature, I attest that the above diagnosis is based upon my personal examination of the slides(and/or other material). Addenda/Procedures The performance characteristics of some immunohistochemical stains, fluorescence in-situ hybridization tests and immunophenotyping by flow cytometry cited in this report (if any) were determined by the Surgical Pathology and Flow Cytometry Departments at [facility] as part of an ongoing quality liaison program and in compliance with federally mandated regulations drawn from the Clinical Laboratory Improvement Act of 1988 (CLIA '88). Some of these tests rely on the use of analyte specific reagents and are subject to specific labeling requirements by the US Food and Drug Administration. Such diagnostic tests may only be performed in a facility that is certified by the Department of Health and Human Services as a high complexity laboratory under CLIA '88. The FDA has determined that such clearance or approval is not necessary. This test is used for clinical purposes. It should not be regarded as investigational or for research. Nevertheless, federal rules concerning the medical use of analyte specific reagents require that the following disclaimer be attached to the report: This test was developed and its performance characteristics determined by the Surgical Pathology and Flow Cytometry Departments of [facility]. It has not been cleared or approved by the U. S. Food and Drug Administration. IMAGES AND SCANNED DOCUMENTS, IF INCLUDED, ONLY VIEWABLE IN PDF VERSION OF REPORT us Juan Moreno MD LAB PATHOLOGY ORDERABL ES Final Result PATHOLOGY [facility] 3rd Floor [place], [place] [phone] * EGD (07/11/2025 9:09 AM CDT) Anatomical Region Laterality Modality Other Narrative Procedure Note Juan Moreno MD - 07/11/2025 9:09 AM CDT GI ENDOSCOPY [facility] Patient Name: Edy Arcos Procedure Date: 07/11/2025 9:09 AM Date of : 1965 Admit Type: Inpatient Age: 60 Gender: Female Attending MD: Juan Moreno M.D., Room: [facility] ENDOSCOPY ROOM 8 Note Status: Finalized Procedure: Upper GI endoscopy Indications: Epigastric abdominal pain Referring MD: Felix Simmons M.D. Providers: Juan Moreno M.D. Medicines: Monitored Anesthesia Care Complications: No immediate complications. Estimated Blood Loss: Estimated blood loss: none. Procedure: Pre-Anesthesia Assessment: - Immediately prior to administration ofmedications, the patient was re-assessed for adequacy to receive sedatives. The benefits, risks, and alternatives to theprocedure and sedation were discussed and informed consentwas obtained. The scope was passed under direct vision. The Endoscope was introduced through the mouth, and advanced to the second part of duodenum. The upperGI endoscopy was accomplished without difficulty. The patient tolerated the procedure well. Findings: The proximal esophagus, mid esophagus, distal esophagus, lower esophageal sphincter and gastroesophageal junction were normal. The entire examined stomach was normal. Biopsies were taken with acold forceps for histology. LAMS stent located in the greater curvature of the gastric body, patent. The scope advanced through the stent to to20 cm into the jejunum which was normal The duodenal bulb, first portion of the duodenum and second portionof the duodenum were normal. Normal jejunum Impression: - Patent LAMS stent - Normal esophagus, stomach, duodenum and jejunum Recommendation: - Await pathology results. Attending Participation: I was present and participated during the entire procedure, including non-acharya portions. Electronically Signed by Juan Moreno M.D. Juan Moreno M.D. 07/11/2025 9:22:26 AM . Number of Addenda: 0 Note Initiated On: 07/11/2025 9:09 AM us Juan Moreno MD ENDOSCOPY PROCEDURES F inal Result * eGFR (07/10/2025 8:32 PM CDT) eGFR >90 >=60 mL/min/1. 73 m2 [...] of Race in Diagnosing Kidney Disease, JASN 202). The CKD-EPI equation should not be used for patients with unstable renal function and has not been validated in children and those over 70. Current interpretive data was last reviewed 2021. Blood 07/10/2025 8:32 PM CDT 07/10/2025 10:04 PM CDT us Thad Vang MD LAB BLOOD ORDERABLES Final Resu lt [facility] [place] [address] * Differential, auto (07/10/2025 8:32 PM CDT) Pathologist [facility] Neutrophil abs 2.01 1.50 - 6.50 K/cumm Imm gran abs 0.01 0.00 - 0.10 K/cumm [facility] [facility] Lymphocyte abs 1.66 0.80 - 3.30 K/cumm [facility] Monocyte abs 0.54 0.20 - 0.80 K/cumm [facility] Eosinophil abs 0.06 0.00 - 0.50 K/cumm [facility] Basophil abs 0.03 0.00 - 0.10 K/cumm [facility] Neutrophil pct 46.7 % [facility] Comment: Interpretive Data Percent cell count reference ranges are not reported, since discordance with absolute values may lead to misinterpretation of CBC data. Current Interpretive Data was last revised on 2018. Imm gran pct 0.2 % [facility] Comment: Interpretive Data Percent cell count reference ranges are not reported, since discordance with absolute values may lead to misinterpretation of CBC data. Current Interpretive Data was last revised on 2018. Lymphocyte pct 38.5 % [facility] Comment: Interpretive Data Percent cell count reference ranges are not reported, since discordance with absolute values may lead to misinterpretation of CBC data. Current Interpretive Data was last revised on 2018. Monocyte pct 12.5 % [facility] Comment: Interpretive Data Percent cell count reference ranges are not reported, since discordance with absolute values may lead to misinterpretation of CBC data. Current Interpretive Data was last revised on 2018. Eosinophil pct 1.4 % [facility] Comment: Interpretive Data Percent cell count reference ranges are not reported, since discordance with absolute values may lead to misinterpretation of CBC data. Current Interpretive Data was last revised on 2018. Basophil pct 0.7 % [facility] Comment: Interpretive Data Percent cell count reference ranges are not reported, since discordance with absolute values may lead to misinterpretation of CBC data. Current Interpretive Data was last revised on 2018. Blood 07/10/2025 8:32 PM CDT 07/10/2025 10:04 PM CDT us Thad Vang MD LAB BLOOD ORDERABLES Final Resu lt [facility] [place] [address] * (ABNORMAL) CBC with auto differential (07/10/2025 8:32 PM CDT) WBC 4.31 3.80 - 9.90 K/cumm Hgb 9.9(L) 11.9 - 15.5 g/dL [facility] Hct 31.1(L) 35.6 - 45.5 % [facility] Plt 187 150 - 400 K/cumm [facility] MPV 10.0 9.1 - 12.3 fL [facility] RBC 3.42(L) 3.90 - 5.20 M/cumm [facility] MCV 90.9 81.3 - 96.4 fL [facility] MCH 28.9 27.1 - 33.3 pg [facility] MCHC 31.8(L) 32.3 - 35.7 g/dL [facility] RDW CV 16.5(H) 11.1 - 14.9 % [facility] RDW SD 52.8(H) 35.7 - 48.1 fL [facility] NRBC abs 0.00 0.00 - 0.01 K/cumm [facility] Blood 07/10/2025 8:32 PM CDT 07/10/2025 10:04 PM CDT Thad Vang MD LAB BLOOD ORDERABLES Final Resu lt Performing Organization Address [facility] de Phone Number [facility] [place] [address] * aPTT (07/10/2025 8:32 PM CDT) aPTT 28 26 - 38 sec Comment: Interpretive Data Heparin therapeutic range: 66.0 - 100.0 seconds. Range based on correlation with therapeutic heparin activity range of 0.3 - 0.7 Units/mL. Current interpretive data was last revised on 2023. Blood 07/10/2025 8:32 PM CDT 07/10/2025 10:13 PM CDT Thad Vang MD LAB BLOOD ORDERABLES Final Resu lt Performing Organization Address [facility] de Phone Number [facility] [place] [address] * Protime-INR (07/10/2025 8:32 PM CDT) PT 11.2 10.2 - 13.5 sec INR 0.99 0.90 - 1.20 [facility] Comment: Interpretive data Oral anticoagulant therapeutic ranges: Venous thromboembolism prophylaxis or treatment: 2.0-3.0 CARDIOLOGY Standard range: 2.0-3.0 High-intensity range: 2.5-3.5 Refer to indication-specific guidelines for appropriate target ranges for prosthetic heart valve replacement. Current interpretive data was last revised on 2019. Blood 07/10/2025 8:32 PM CDT 07/10/2025 10:13 PM CDT Thad Vang MD LAB BLOOD ORDERABLES Final Resu lt Performing Organization Address City/[facility]/ZIP Co de Phone Number [facility] [place] [address] * Type and screen (07/10/2025 8:32 PM CDT) Pathologist [facility] ABO Rh A Negative Ishan, indirect Negative [facility] Blood 07/10/2025 8:32 PM CDT 07/10/2025 10:09 PM CDT Narrative [facility] - 07/10/2025 11:28 PM CDT Has the patient had Daratumumab or Isatuximab in the past 6 months?->Unknown Thad Vang MD LAB BLOOD BANK TEST ORDERABLES Final Result Performing Organization Address [facility]/ZIP Co de Phone Number [facility] [place] [address] * Phosphorus (07/10/2025 8:32 PM CDT) Pathologist [facility] Phosphorus, pl 2.5 2.3 - 4.5 mg/dL Blood 07/10/2025 8:32 PM CDT 07/10/2025 10:04 PM CDT Thad Vang MD LAB BLOOD ORDERABLES Final Resu lt Performing Organization Address City/[facility]/ZIP Co de Phone Number [facility] [place] [address] * (ABNORMAL) Comprehensive metabolic panel (07/10/2025 8:32 PM CDT) Pathologist [facility] Sodium 144 135 - 145 mmol/L Potassium, pl 4.2 3.3 - 4.9 mmol/L [facility] Chloride 111(H) 97 - 110 mmol/L [facility] CO2 27 22 - 32 mmol/L [facility] Anion gap 6 2 - 15 mmol/L [facility] BUN 5(L) 6 - 25 mg/dL [facility] Creatinine 0.72 0.60 - 1.10 mg/dL [facility] Glucose 127 70 - 199 mg/dL [facility] Comment: Interpretive Data Fasting glucose >/= 126 [...] classification and Diagnosis of Diabetes Diabetes Care 202; 46: S19-S40. Current interpretive data was last revised 2022. Calcium 9.1 8.5 - 10.3 mg/dL [facility] Bilirubin, total 0.2 0.1 - 1.2 mg/dL [facility] Protein, pl 6.7 6.5 - 8.5 g/dL [facility] Albumin 3.6 3.5 - 5.0 g/dL [facility] Alk phos 82 40 - 130 Units/L [facility] ALT 62(H) 7 - 45 Units/L [facility] AST 42 10 - 45 Units/L [facility] Blood 07/10/2025 8:32 PM CDT 07/10/2025 10:04 PM CDT us Thad Vang MD LAB BLOOD ORDERABLES Final Resu lt [facility] [place] [address] * Protime-INR (07/09/2025 11:43 PM CDT) PT 11.7 10.2 - 13.5 sec INR 1.04 0.90 - 1.20 [facility] Comment: Interpretive data Oral anticoagulant therapeutic ranges: Venous thromboembolism prophylaxis or treatment: 2.0-3.0 CARDIOLOGY Standard range: 2.0-3.0 High-intensity range: 2.5-3.5 Refer to indication-specific guidelines for appropriate target ranges for prosthetic heart valve replacement. Current interpretive data was last revised on 2019. Blood 07/09/2025 11:4 3 PM CDT 07/09/2025 11:58 PM CDT us Thad Vang MD LAB BLOOD ORDERABLES Final Resu lt [facility] [place] [address] * CT Abdomen Pelvis W Contrast (07/09/2025 7:18 PM CDT) Anatomical Region Laterality Modality Body N/A Computed Tomogra phy 07/09/2025 7:33 PM CDT Impressions 07/09/2025 9:32 PM CDT 1. Lumen apposing metal stent (LAMS) between the stomach and jejunum without gastric dilation, which remains patent and unchanged in position. 2. 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 No metastatic disease in the abdomen or pelvis. 3. New ground glass nodule in the right middle lobe with tree-in-bud nodularity in both lower lobes which may be likely infectious/inflammatory. Recommend attention on short-term follow-up. Dictated by: Ben Treviño MD The radiology attending physician has personally reviewed this study, and had reviewed and/or edited this written report and agrees with it. Electronically signed by: Swapnil Singh M.D. Narrative 07/09/2025 9:32 PM CDT EXAMINATION: Computed tomography of the abdomen and pelvis with intravenous contrast HISTORY: Pancreatic adenocarcinoma TECHNIQUE: Transaxial computed tomographic images of the abdomen and pelvis were obtained with intravenous contrast according to the standard protocol after the uneventful administration of 93 mL Opti-Ray 350 intravenous contrast. COMPARISON: 06/10/2025 FINDINGS: New 1 cm groundglass nodule in the right middle lobe (3/13) mild tree-in-bud nodularity in the dependent lower lobes. Liver, gallbladder, spleen, adrenal glands are normal. Kidneys enhance symmetrically without hydronephrosis. Urinary bladder is normal. Uterus is anteverted. Unchanged right adnexal cyst. Overall unchanged size of a hypoattenuating mass in the pancreatic uncinate process measuring 2.4 x 2.4 cm. The mass encases the superior mesenteric artery which is narrowed but patent. The mass abuts the superior mesenteric vein which is also patent. There is loss of the fat plane with the duodenum. Again seen is a stent between the stomach and the jejunum, which remains patent and in unchanged position. The stomach is not distended. No bowel obstruction. Appendix is normal. No ascites or pneumoperitoneum. No abdominal or pelvic lymphadenopathy. Abdominal aorta is normal in caliber. No suspicious osseous lesion. Procedure Note Swapnil Singh MD PhD - 07/09/2025 EXAMINATION: Computed tomography of the abdomen and pelvis with intravenous contrast HISTORY: Pancreatic adenocarcinoma TECHNIQUE: Transaxial computed tomographic images of the abdomen and pelvis were obtained with intravenous contrast according to the standard protocol after the uneventful administration of 93 mL Opti-Ray 350 intravenous contrast. COMPARISON: 06/10/2025 FINDINGS: New 1 cm groundglass nodule in the right middle lobe (3/13) mild tree-in-bud nodularity in the dependent lower lobes. Liver, gallbladder, spleen, adrenal glands are normal. Kidneys enhance symmetrically without hydronephrosis. Urinary bladder is normal. Uterus is anteverted. Unchanged right adnexal cyst. Overall unchanged size of a hypoattenuating mass in the pancreatic uncinate process measuring 2.4 x 2.4 cm. The mass encases the superior mesenteric artery which is narrowed but patent. The mass abuts the superior mesenteric vein which is also patent. There is loss of the fat plane with the duodenum. Again seen is a stent between the stomach and the jejunum, which remains patent and in unchanged position. The stomach is not distended. No bowel obstruction. Appendix is normal. No ascites or pneumoperitoneum. No abdominal or pelvic lymphadenopathy. Abdominal aorta is normal in caliber. No suspicious osseous lesion. IMPRESSION: 1. Lumen apposing metal stent (LAMS) between the stomach and jejunum without gastric dilation, which remains patent and unchanged in position. 2. 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 No metastatic disease in the abdomen or pelvis. 3. New ground glass nodule in the right middle lobe with tree-in-bud nodularity in both lower lobes which may be likely infectious/inflammatory. Recommend attention on short-term follow-up. Dictated by: Ben Treviño MD The radiology attending physician has personally reviewed this study, and had reviewed and/or edited this written report and agrees with it. Electronically signed by: Swapnil Singh M.D. us Karyn Jarrell BOOSTER PUMP OPERATOR IMG CT PROCEDURES Final Result * POC Blood Gas and Chemistries, Arterial - (07/09/2025 7:00 PM CDT) Lactate POC 1.4 0.7 - 2.0 mmol/L Blood 07/09/2025 7:00 PM CDT 07/09/2025 7:00 PM CDT us Felix Simmons MD LAB POCT ORDERABLES - THEA CE Final Result [facility] [place] [address] * eGFR (07/09/2025 6:57 PM CDT) eGFR >90 >=60 mL/min/1. 73 m2 [...] of Race in Diagnosing Kidney Disease, JASN 2021). The CKD-EPI equation should not be used for patients with unstable renal function and has not been validated in children and those over 70. Current interpretive data was last reviewed 2021. Blood 07/09/2025 6:57 PM CDT 07/09/2025 7:11 PM CDT us Karyn Jarrell BOOSTER PUMP OPERATOR LAB BLOOD ORDERABLES Fin al Result [facility] [place] [address] * Differential, auto (07/09/2025 6:57 PM CDT) Neutrophil abs 4.94 1.50 - 6.50 K/cumm Imm gran abs 0.02 0.00 - 0.10 K/cumm [facility] Lymphocyte abs 1.54 0.80 - 3.30 K/cumm [facility] Monocyte abs 0.79 0.20 - 0.80 K/cumm [facility] Eosinophil abs 0.04 0.00 - 0.50 K/cumm [facility] Basophil abs 0.04 0.00 - 0.10 K/cumm [facility] Neutrophil pct 67.1 % [facility] Comment: Interpretive Data Percent cell count reference ranges are not reported, since discordance with absolute values may lead to misinterpretation of CBC data. Current Interpretive Data was last revised on 2018. Imm gran pct 0.3 % [facility] Comment: Interpretive Data Percent cell count reference ranges are not reported, since discordance with absolute values may lead to misinterpretation of CBC data. Current Interpretive Data was last revised on 2018. Lymphocyte pct 20.9 % [facility] Comment: Interpretive Data Percent cell count reference ranges are not reported, since discordance with absolute values may lead to misinterpretation of CBC data. Current Interpretive Data was last revised on 2018. Monocyte pct 10.7 % [facility] Comment: Interpretive Data Percent cell count reference ranges are not reported, since discordance with absolute values may lead to misinterpretation of CBC data. Current Interpretive Data was last revised on 2018. Eosinophil pct 0.5 % [facility] Comment: Interpretive Data Percent cell count reference ranges are not reported, since discordance with absolute values may lead to misinterpretation of CBC data. Current Interpretive Data was last revised on 2018. Basophil pct 0.5 % [facility] Comment: Interpretive Data Percent cell count reference ranges are not reported, since discordance with absolute values may lead to misinterpretation of CBC data. Current Interpretive Data was last revised on 2018. Blood 07/09/2025 6:57 PM CDT 07/09/2025 7:11 PM CDT us Karyn Jarrell BOOSTER PUMP OPERATOR LAB BLOOD ORDERABLES Fin al Result [facility] [place] [address] * (ABNORMAL) CBC with auto differential (07/09/2025 6:57 PM CDT) WBC 7.37 3.80 - 9.90 K/cumm Hgb 10.7(L) 11.9 - 15.5 g/dL [facility] Hct 32.2(L) 35.6 - 45.5 % [facility] Plt 188 150 - 400 K/cumm [facility] MPV 9.4 9.1 - 12.3 fL [facility] RBC 3.63(L) 3.90 - 5.20 M/cumm [facility] MCV 88.7 81.3 - 96.4 fL [facility] MCH 29.5 27.1 - 33.3 pg [facility] MCHC 33.2 32.3 - 35.7 g/dL [facility] RDW CV 16.1(H) 11.1 - 14.9 % [facility] RDW SD 51.3(H) 35.7 - 48.1 fL [facility] NRBC abs 0.00 0.00 - 0.01 K/cumm [facility] Blood 07/09/2025 6:57 PM CDT 07/09/2025 7:11 PM CDT Karyn Jarrell BOOSTER PUMP OPERATOR LAB BLOOD ORDERABLES Fin al Result Performing Organization Address City/[facility] Co de Phone Number [facility] [place] [address] * Magnesium (07/09/2025 6:57 PM CDT) Pathologist [facility] Magnesium 2.0 1.4 - 2.5 mg/dL Blood 07/09/2025 6:57 PM CDT 07/09/2025 7:11 PM CDT Karyn Jarrell LAB BLOOD ORDERABLES Fin al Result Performing Organization Address [facility] de Phone Number [facility] [place] [address] * (ABNORMAL) Comprehensive metabolic panel (07/09/2025 6:57 PM CDT) [facility] Sodium 140 135 - 145 mmol/L Potassium, pl 4.2 3.3 - 4.9 mmol/L [facility] Chloride 102 97 - 110 mmol/L [facility] CO2 28 22 - 32 mmol/L [facility] Anion gap 10 2 - 15 mmol/L [facility] BUN 10 6 - 25 mg/dL [facility] Creatinine 0.71 0.60 - 1.10 mg/dL [facility] Glucose 103 70 - 199 mg/dL [facility] Comment: Interpretive Data Fasting glucose >/= 126 [...] classification and Diagnosis of Diabetes Diabetes Care 202; 46: S19-S40. Current interpretive data was last revised 2022. Calcium 9.7 8.5 - 10.3 mg/dL [facility] Bilirubin, total 0.3 0.1 - 1.2 mg/dL [facility] Protein, pl 7.4 6.5 - 8.5 g/dL [facility] Albumin 3.8 3.5 - 5.0 g/dL [facility] Alk phos 93 40 - 130 Units/L [facility] ALT 82(H) 7 - 45 Units/L [facility] AST 54(H) 10 - 45 Units/L [facility] Blood 07/09/2025 6:57 PM CDT 07/09/2025 7:11 PM CDT us Karyn Jarrell BOOSTER PUMP OPERATOR LAB BLOOD ORDERABLES Fin al Result [facility] [place] [address] * eGFR (06/26/2025 8:57 AM CDT) eGFR >90 >=60 mL/min/1. 73 [...] of Race in Diagnosing Kidney Disease, JASN 202). The CKD-EPI equation should not be used for patients with unstable renal function and has not been validated in children and those over 70. Current interpretive data was last reviewed 2021. Blood 06/26/2025 8:57 AM CDT 06/26/2025 9:00 AM CDT us Felix Simmons MD LAB BLOOD ORDERABLES Final Result [facility] [place] [address] * Differential, auto (06/26/2025 8:57 AM CDT) Neutrophil abs 2.79 1.50 - 6.50 K/cumm Comment:Testing performed by : [facility], [address] [place] [address] Lymphocyte abs 1.31 0.80 - 3.30 K/cumm [facility] Comment:Testing performed by : [facility], [address] [place] [address] Monocyte abs 0.59 0.20 - 0.80 K/cumm [facility] Comment:Testing performed by : [facility], [address] [place] [address] Eosinophil abs 0.10 0.00 - 0.50 K/cumm [facility] Comment:Testing performed by : [facility], [address] [place] [phone] Basophil abs 0.02 0.00 - 0.10 K/cumm [facility] Comment:Testing performed by : [facility], [address] [place] [phone] Neutrophil pct 58.2 % [facility] Comment: Interpretive Data Percent cell count reference ranges are not reported, since discordance with absolute values may lead to misinterpretation of CBC data. Current Interpretive Data was last revised on 2018. Testing performed by: [facility], [address] [place] [phone] Lymphocyte pct 27.2 % [facility] Comment: Interpretive Data Percent cell count reference ranges are not reported, since discordance with absolute values may lead to misinterpretation of CBC data. Current Interpretive Data was last revised on 2018. Testing performed by: [facility], [address] [place] [address] Monocyte pct 12.2 % [facility] Comment: Interpretive Data Percent cell count reference ranges are not reported, since discordance with absolute values may lead to misinterpretation of CBC data. Current Interpretive Data was last revised on 2018. Testing performed by: [facility], [address] [place] [phone] Eosinophil pct 2.0 % [facility] Comment: Interpretive Data Percent cell count reference ranges are not reported, since discordance with absolute values may lead to misinterpretation of CBC data. Current Interpretive Data was last revised on 2018. Testing performed by: [facility], [address] [place] [phone] Basophil pct 0.4 % [facility] Comment: Interpretive Data Percent cell count reference ranges are not reported, since discordance with absolute values may lead to misinterpretation of CBC data. Current Interpretive Data was last revised on 2018. Testing performed by: [facility], [address] [place] [address] Blood 06/26/2025 8:57 AM CDT 06/26/2025 8:59 AM CDT Felix Simmons MD LAB BLOOD ORDERABLES Final Result [facility] [place] [address] * (ABNORMAL) CBC with auto differential (06/26/2025 8:57 AM CDT) WBC 4.79 3.80 - 9.90 K/cumm Comment:Testing performed by : [facility], [address] [place] [phone] Hgb 11.6(L) 11.9 - 15.5 g/dL [facility] Comment:Testing performed by : [facility], [address] [place] [phone] Hct 34.5(L) 35.6 - 45.5 % [facility] Comment:Testing performed by : [facility], [address] [place] [address] Plt 318 150 - 400 K/cumm [facility] Comment:Testing performed by : [facility], [address] [place] [address] MPV 6.8 6.8 - 10.4 fL [facility] Comment:Testing performed by : [facility], [address] [place], [place] [phone] RBC 3.96 3.90 - 5.20 M/cumm [facility] Comment:Testing performed by : [facility], [address] [place], [place] [phone] MCV 87.2 81.3 - 96.4 fL [facility] Comment:Testing performed by : [facility], [address] [place] [address] MCH 29.2 27.1 - 33.3 pg [facility] Comment:Testing performed by : [facility], [address] [place] [address] MCHC 33.5 32.3 - 35.7 g/dL [facility] Comment:Testing performed by : [facility], [address] [place] [address] RDW CV 16.2(H) 11.1 - 14.9 % [facility] Comment:Testing performed by : [facility], [address] [place] [address] NRBC abs 0.00 0.00 - 0.01 K/cumm [facility] Comment:Testing performed by : [facility], [address] [place] [address] Blood 06/26/2025 8:57 AM CDT 06/26/2025 8:59 AM CDT us Felix Simmons MD LAB BLOOD ORDERABLES Final Result [facility] [place] [address] * (ABNORMAL) Comprehensive metabolic panel (06/26/2025 8:57 AM CDT) Sodium 141 135 - 145 mmol/L Potassium, pl 4.3 3.3 - 4.9 mmol/L [facility] Chloride 105 97 - 110 mmol/L [facility] CO2 26 22 - 32 mmol/L [facility] Anion gap 10 2 - 15 mmol/L [facility] BUN 12 6 - 25 mg/dL [facility] Creatinine 0.67 0.60 - 1.10 mg/dL [facility] Glucose 129 70 - 199 mg/dL [facility] Comment: Interpretive Data Fasting glucose >/= 126 [...] interpretive data was last revised 2022. Calcium 9.7 8.5 - 10.3 mg/dL [facility] Bilirubin, total 0.3 0.1 - 1.2 mg/dL [facility] Protein, pl 7.3 6.5 - 8.5 g/dL [facility] Albumin 4.0 3.5 - 5.0 g/dL [facility] Alk phos 101 40 - 130 Units/L [facility] ALT 56(H) 7 - 45 Units/L [facility] AST 42 10 - 45 Units/L [facility] Blood 06/26/2025 8:57 AM CDT 06/26/2025 9:00 AM CDT us Felix Simmons MD LAB BLOOD ORDERABLES Final Result [facility] Department [place] [address] * eGFR (06/12/2025 9:28 AM CDT) [facility] eGFR >90 >=60 mL/min/1. 73 m2 Comment: [...] interpretive data was last reviewed 2021. Blood 06/12/2025 9:28 AM CDT 06/12/2025 9:37 AM CDT us Felix Simmons MD LAB BLOOD ORDERABLES Final Result [facility] [place] [address] * Differential, auto (06/12/2025 9:28 AM CDT) [facility] Neutrophil abs 3.39 1.50 - 6.50 K/cumm Comment:Testing performed by : [facility], [address] [place] [phone] Lymphocyte abs 1.63 0.80 - 3.30 K/cumm TACOS CADENA Comment:Testing performed by : [facility], [address] [place] [phone] Monocyte abs 0.77 0.20 - 0.80 K/cumm [facility] Comment:Testing performed by : [facility], [address] [place] [phone] Eosinophil abs 0.22 0.00 - 0.50 K/cumm CERNER BJ Comment:Testing performed by : [facility], [address] [place] [phone] Basophil abs 0.06 0.00 - 0.10 K/cumm [facility] Comment:Testing performed by : [facility], [address] [place] [phone] Neutrophil pct 55.9 % CERNER BJ Comment: Interpretive Data Percent cell count reference ranges are not reported, since discordance with absolute values may lead to misinterpretation of CBC data. Current Interpretive Data was last revised on 2018. Testing performed by: [facility], [address] [place] [address] Lymphocyte pct 26.9 % CERNER BJ Comment: Interpretive Data Percent cell count reference ranges are not reported, since discordance with absolute values may lead to misinterpretation of CBC data. Current Interpretive Data was last revised on 2018. Testing performed by: [facility], [address] [place] [address] Monocyte pct 12.7 % CERNER BJ Comment: Interpretive Data Percent cell count reference ranges are not reported, since discordance with absolute values may lead to misinterpretation of CBC data. Current Interpretive Data was last revised on 2018. Testing performed by: [facility], [address] [place] [phone] Eosinophil pct 3.5 % CERNER [facility] Comment: Interpretive Data Percent cell count reference ranges are not reported, since discordance with absolute values may lead to misinterpretation of CBC data. Current Interpretive Data was last revised on 2018. Testing performed by: [facility], [address] [place] [phone] Basophil pct 1.0 % [facility] Comment: Interpretive Data Percent cell count reference ranges are not reported, since discordance with absolute values may lead to misinterpretation of CBC data. Current Interpretive Data was last revised on 2018. Testing performed by: [facility], [address] [place] [address] Blood 06/12/2025 9:28 AM CDT 06/12/2025 9:33 AM CDT Felix Simmons MD LAB BLOOD ORDERABLES Final Result [facility] [place] [address] * (ABNORMAL) CBC with auto differential (06/12/2025 9:28 AM CDT) WBC 6.06 3.80 - 9.90 K/cumm Comment:Testing performed by : [facility], [address] [place] [address] Hgb 11.8(L) 11.9 - 15.5 g/dL CERWILLIAN CADENA Comment:Testing performed by : [facility], [address] [place] [address] Hct 35.3(L) 35.6 - 45.5 % CERWILLIAN BJ Comment:Testing performed by : [facility], [address] [place] [address] Plt 286 150 - 400 K/cumm CERWILLIAN BJ Comment:Testing performed by : [facility], [address] [place] [address] MPV 7.4 6.8 - 10.4 fL CERWILLIAN BJ Comment:Testing performed by : [facility], [address] [place] [address] RBC 3.98 3.90 - 5.20 M/cumm CERWILLIAN BJ Comment:Testing performed by : [facility], [address] [place] [address] MCV 88.8 81.3 - 96.4 fL CERWILLIAN BJ Comment:Testing performed by : [facility], [address] [place] [address] MCH 29.6 27.1 - 33.3 pg CERWILLIAN BJ Comment:Testing performed by : [facility], [address] [place] [phone] MCHC 33.4 32.3 - 35.7 g/dL [facility] Comment:Testing performed by : [facility], [address] [place], [place] [phone] RDW CV 16.0(H) 11.1 - 14.9 % [facility] Comment:Testing performed by : [facility], [address] [place], [place] [phone] NRBC abs 0.00 0.00 - 0.01 K/cumm [facility] Comment:Testing performed by : [facility], [address] [place], [place] [phone] Blood 06/12/2025 9:28 AM CDT 06/12/2025 9:33 AM CDT Felix Simmons MD LAB BLOOD ORDERABLES Final Result Performing Organization Address City/[facility]/ZIP Co de Phone Number [facility] [place] [address] * (ABNORMAL) Cancer antigen 19-9 (06/12/2025 9:28 AM CDT) Pathologist [facility] [place] 19-9 ag 88.5(H) <=35.0 units/mL Comment: Interpretive Data The [employer] [place] 19-9 assay procedure was used. Results from different manufacturers or methods may not be comparable. Serial testing should be performed using the same method. Blood 06/12/2025 9:28 AM CDT 06/12/2025 10:11 AM CDT Felix Simmons MD LAB BLOOD ORDERABLES Final Result [facility] [place] [address] * Comprehensive metabolic panel (06/12/2025 9:28 AM CDT) Pathologist [facility] Sodium 141 135 - 145 mmol/L Potassium, pl 4.2 3.3 - 4.9 mmol/L [facility] Chloride 105 97 - 110 mmol/L [facility] CO2 27 22 - 32 mmol/L [facility] Anion gap 9 2 - 15 mmol/L [facility] BUN 11 6 - 25 mg/dL [facility] Creatinine 0.62 0.60 - 1.10 mg/dL [facility] Glucose 89 70 - 199 mg/dL [facility] Comment: Interpretive Data Fasting glucose >/= 126 [...] interpretive data was last revised 2022. Calcium 9.6 8.5 - 10.3 mg/dL [facility] Bilirubin, total 0.2 0.1 - 1.2 mg/dL [facility] Protein, pl 7.3 6.5 - 8.5 g/dL [facility] Albumin 4.0 3.5 - 5.0 g/dL [facility] Alk phos 87 40 - 130 Units/L [facility] ALT 23 7 - 45 Units/L [facility] AST 26 10 - 45 Units/L [facility] Blood 06/12/2025 9:28 AM CDT 06/12/2025 9:37 AM CDT us Felix Simmons MD LAB BLOOD ORDERABLES Final Result [facility] [place] [address] * CT chest abdomen pelvis with contrast (06/10/2025 4:30 PM CDT) Anatomical Region Laterality Modality Body N/A Computed Tomogra phy 06/10/2025 7:17 PM CDT Impressions 06/10/2025 7:17 PM CDT No significant change when compared to the prior study. 1. Stable mass in the uncinate process with involvement of the third portion of duodenum, superior mesenteric artery and superior mesenteric vein. 2. Status post LAMS which is patent. 3. No thoracic metastases. Electronically signed by: Tam Moran M.D. Narrative 06/10/2025 7:17 PM CDT EXAMINATION: CT CHEST, ABDOMEN AND PELVIS WITH INTRAVENOUS CONTRAST TECHNIQUE: Standard CT of the chest, abdomen and pelvis was performed after the administration of intravenous contrast. Studies were performed after the administration of the following amount of Optiray 350: 69 mL HISTORY: Pancreatic cancer FINDINGS: Comparison is made to prior study of 05/02/2025. Chest: Again seen are patchy airspace opacities in both lung bases which may be the sequela of aspiration. No pulmonary metastases No pleural or pericardial effusion. No supraclavicular, axillary or mediastinal lymphadenopathy. A central catheter seen ending within the superior vena cava. The heart size is normal. Abdomen/pelvis: When compared to the prior study, no change in a stent between the stomach and the jejunum (lumen opposing metal stent LAMS). The stomach is not distended. Liver is normal in appearance. The bladder is decompressed. Both kidneys are symmetric without hydronephrosis. Again seen is a mass surrounding the superior mesenteric artery involving the third portion of the duodenum. This mass compresses the first jejunal vein. At slice position -1326.7 the uncinate process mass measures 2.3 x 2.4 cm. When measured similarly on the prior study it was about the same. There is some effacement of the fat plane with the superior mesenteric vein which is likely involved. There is no pancreatic ductal dilatation. The remainder the pancreas is unremarkable. Abdominal aorta is normal in caliber. There is no retroperitoneal or mesenteric lymphadenopathy. Again seen is a right adnexal cyst without change. Uterus is present within the midline. The colon is decompressed with a moderate amount of stool within it. No colonic wall thickening is identified. The appendix is seen and is normal. Small bowel is normal in course and caliber. The bone windows do not demonstrate any osseous lesion. Procedure Note Tam Moran MD - 06/10/2025 EXAMINATION: CT CHEST, ABDOMEN AND PELVIS WITH INTRAVENOUS CONTRAST TECHNIQUE: Standard CT of the chest, abdomen and pelvis was performed after the administration of intravenous contrast. Studies were performed after the administration of the following amount of Optiray 350: 69 mL HISTORY: Pancreatic cancer FINDINGS: Comparison is made to prior study of 05/02/2025. Chest: Again seen are patchy airspace opacities in both lung bases which may be the sequela of aspiration. No pulmonary metastases No pleural or pericardial effusion. No supraclavicular, axillary or mediastinal lymphadenopathy. A central catheter seen ending within the superior vena cava. The heart size is normal. Abdomen/pelvis: When compared to the prior study, no change in a stent between the stomach and the jejunum (lumen opposing metal stent LAMS). The stomach is not distended. Liver is normal in appearance. The bladder is decompressed. Both kidneys are symmetric without hydronephrosis. Again seen is a mass surrounding the superior mesenteric artery involving the third portion of the duodenum. This mass compresses the first jejunal vein. At slice position -1326.7 the uncinate process mass measures 2.3 x 2.4 cm. When measured similarly on the prior study it was about the same. There is some effacement of the fat plane with the superior mesenteric vein which is likely involved. There is no pancreatic ductal dilatation. The remainder the pancreas is unremarkable. Abdominal aorta is normal in caliber. There is no retroperitoneal or mesenteric lymphadenopathy. Again seen is a right adnexal cyst without change. Uterus is present within the midline. The colon is decompressed with a moderate amount of stool within it. No colonic wall thickening is identified. The appendix is seen and is normal. Small bowel is normal in course and caliber. The bone windows do not demonstrate any osseous lesion. IMPRESSION: No significant change when compared to the prior study. 1. Stable mass in the uncinate process with involvement of the third portion of duodenum, superior mesenteric artery and superior mesenteric vein. 2. Status post LAMS which is patent. 3. No thoracic metastases. Electronically signed by: Tam Moran M.D. Felix Simmons MD IM CT PROCEDURES Final Re sult * RAD ONC ARIA SESSION SUMMARY (05/20/2025 8:30 AM CDT) Course Name [email or web address] s ARIA Course Plan Date 04/30/2025 10:42 AM ARIA Elapsed Days 6 ARIA Treatment Start Date 05/14/2025 ARIA Treatment Site [id number] ARIA Dose Given To Date (cGy) 5,000 ARIA Session Dosage Given (cGy) 1,000 ARIA Plan ID VR_PANCREA S ARIA Fractions Treated 5 ARIA Prescribed Dose Per Fraction (cGy) 1,000 ARIA Prescribed Total Dose (cGy) 5,000 ARIA 05/20/2025 8:30 AM CDT us Not In File Miscellaneous RADIATION ONCOLOGY ORD ERABLES Final Result Performing Organization Address [facility] Co de Phone Number ARIA * RAD ONC ARIA SESSION SUMMARY (05/17/2025 9:52 AM CDT) Course Name [email or web address]_Pancrea ARIA Course Plan Date 04/30/2025 10:42 AM ARIA Elapsed Days 3 ARIA Treatment Start Date 05/14/2025 ARIA Treatment Site [id number] ARIA Dose Given To Date (cGy) 4,000 ARIA Session Dosage Given (cGy) 1,000 ARIA Plan ID VR_PANCREA S ARIA Fractions Treated 4 ARIA Prescribed Dose Per Fraction (cGy) 1,000 ARIA Prescribed Total Dose (cGy) 5,000 ARIA 05/17/2025 9:52 AM CDT us Not In File Miscellaneous RADIATION ONCOLOGY ORD ERABLES Final Result ARIA * RAD ONC ARIA SESSION SUMMARY (05/16/2025 9:13 AM CDT) Course Name C1_Pancrea ARIA Course Plan Date 04/30/2025 10:42 AM ARIA Elapsed Days 2 ARIA Treatment Start Date 05/14/2025 ARIA Treatment Site [id number] ARIA Dose Given To Date (cGy) 3,000 ARIA Session Dosage Given (cGy) 1,000 ARIA Plan ID VR_PANCREA S ARIA Fractions Treated 3 ARIA Prescribed Dose Per Fraction (cGy) 1,000 ARIA Prescribed Total Dose (cGy) 5,000 ARIA 05/16/2025 9:13 AM CDT us Not In File Miscellaneous RADIATION ONCOLOGY ORD ERABLES Final Result Performing Organization Address [facility] Co de Phone Number ARIRey * RAD ONC ARIA SESSION SUMMARY (05/15/2025 9:18 AM CDT) Course Name [email or web address] s_2024 ARIA Course Plan Date 04/30/2025 10:42 AM ARIA Elapsed Days 1 ARIA Treatment Start Date 05/14/2025 ARIA Treatment Site [id number] ARIA Dose Given To Date (cGy) 2,000 ARIA Session Dosage Given (cGy) 1,000 ARIA Plan ID VR_PANCREA S ARIA Fractions Treated 2 ARIA Prescribed Dose Per Fraction (cGy) 1,000 ARIA Prescribed Total Dose (cGy) 5,000 ARIA 05/15/2025 9:18 AM CDT us Not In File Miscellaneous RADIATION ONCOLOGY ORD ERABLES Final Result Performing Organization Address [facility] de Phone Number ISAC * RAD ONC ARIA SESSION SUMMARY (05/14/2025 9:56 AM CDT) Course Name [email or web address] s_2024 ARIA Course Plan Date 04/30/2025 10:42 AM ARIA Elapsed Days 0 ARIA Treatment Start Date 05/14/2025 ARIA Treatment Site [id number] ARIA Dose Given To Date (cGy) 1,000 ARIA Session Dosage Given (cGy) 1,000 ARIA Plan ID VR_PANCREA S ARIA Fractions Treated 1 ARIA Prescribed Dose Per Fraction (cGy) 1,000 ARIA Prescribed Total Dose (cGy) 5,000 ARIA 05/14/2025 9:56 AM CDT us Not In File Miscellaneous RADIATION ONCOLOGY ORD ERABLES Final Result ARIA * CT Abdomen Pelvis W Contrast (05/02/2025 2:10 PM CDT) Anatomical Region Laterality Modality Body N/A Computed Tomogra phy 05/02/2025 2:44 PM CDT Impressions 05/02/2025 2:50 PM CDT 1. 3 cm uncinate process pancreatic lesion with involvement of the superior mesenteric artery, vein and 3rd portion of the duodenum, similar to the prior exam. Unchanged metallic stent between the stomach lumen and the jejunum. 2. Right middle lobe tree-in-bud opacities and right lower lobe groundglass opacities are likely infectious or inflammatory, recommend attention on follow-up imaging. Dictated by: Preet Michel M.D. (Ramanan) The radiology attending physician has personally reviewed this study, and had reviewed and/or edited this written report and agrees with it. Electronically signed by: July Pena M.D. Narrative 05/02/2025 2:50 PM CDT EXAMINATION: Computed tomography of the abdomen and pelvis with intravenous contrast HISTORY: 5-year-old female with acute nonlocalized abdominal pain, history of gastric outlet obstruction and pancreatic cancer. TECHNIQUE: Transaxial computed tomographic images of the abdomen and pelvis were obtained with intravenous contrast according to the standard protocol after the uneventful administration of 70 mL Opti-Ray 350 intravenous contrast. COMPARISON: 04/02/2025 CT FINDINGS: Tree-in-bud opacities in the right middle lobe. Scattered right lower lobe groundglass opacities, which may be infectious or inflammatory. No pleural effusion or pneumothorax. The imaged esophagus is normal. The stomach and duodenum are normal. Unchanged metallic stent between the stomach lumen and a loop of jejunum. The imaged heart is normal in size. No pericardial effusion. Thoracic aorta is normal. The liver is normal. Gallbladder sludge. The spleen is normal. The bilateral kidneys and adrenals are normal. There is a 3.0 x 2.0 cm hypoattenuating mass in the pancreatic uncinate process/head with similar involvement of the superior mesenteric artery and vein along with involvement of the 3rd portion of the duodenum.. The lesion is similar in size to the prior exam. The bladder is normal. The uterus is present. 5.5 cm right adnexal cyst, unchanged. No aggressive osseous lesions. Procedure Note July Pena MD - 05/02/2025 EXAMINATION: Computed tomography of the abdomen and pelvis with intravenous contrast HISTORY: 5-year-old female with acute nonlocalized abdominal pain, history of gastric outlet obstruction and pancreatic cancer. TECHNIQUE: Transaxial computed tomographic images of the abdomen and pelvis were obtained with intravenous contrast according to the standard protocol after the uneventful administration of 70 mL Opti-Ray 350 intravenous contrast. COMPARISON: 04/02/2025 CT FINDINGS: Tree-in-bud opacities in the right middle lobe. Scattered right lower lobe groundglass opacities, which may be infectious or inflammatory. No pleural effusion or pneumothorax. The imaged esophagus is normal. The stomach and duodenum are normal. Unchanged metallic stent between the stomach lumen and a loop of jejunum. The imaged heart is normal in size. No pericardial effusion. Thoracic aorta is normal. The liver is normal. Gallbladder sludge. The spleen is normal. The bilateral kidneys and adrenals are normal. There is a 3.0 x 2.0 cm hypoattenuating mass in the pancreatic uncinate process/head with similar involvement of the superior mesenteric artery and vein along with involvement of the 3rd portion of the duodenum.. The lesion is similar in size to the prior exam. The bladder is normal. The uterus is present. 5.5 cm right adnexal cyst, unchanged. No aggressive osseous lesions. IMPRESSION: 1. 3 cm uncinate process pancreatic lesion with involvement of the superior mesenteric artery, vein and 3rd portion of the duodenum, similar to the prior exam. Unchanged metallic stent between the stomach lumen and the jejunum. 2. Right middle lobe tree-in-bud opacities and right lower lobe groundglass opacities are likely infectious or inflammatory, recommend attention on follow-up imaging. Dictated by: Preet Michel M.D. (Ramanan) The radiology attending physician has personally reviewed this study, and had reviewed and/or edited this written report and agrees with it. Electronically signed by: July Pena M.D. Sue Simeon BOOSTER [employer] OPERATOR IMG CT PROCEDURES Final Re sult * eGFR (05/02/2025 1:30 PM CDT) Pathologist [facility] eGFR >90 >=60 mL/min/1. 73 m2 Comment: [...] interpretive data was last reviewed 2021. Blood 05/02/2025 1:30 PM CDT 05/02/2025 1:44 PM CDT Sue Simeon [employer] OPERATOR LAB BLOOD ORDERABLES Final Result [facility] [place] [address] * (ABNORMAL) Differential, auto (05/02/2025 1:30 PM CDT) Pathologist [facility] Neutrophil abs 3.58 1.50 - 6.50 K/cumm Imm gran abs 0.01 0.00 - 0.10 K/cumm [facility] Lymphocyte abs 2.01 0.80 - 3.30 K/cumm [facility] Monocyte abs 0.93(H) 0.20 - 0.80 K/cumm [facility] Eosinophil abs 0.22 0.00 - 0.50 K/cumm [facility] Basophil abs 0.05 0.00 - 0.10 K/cumm [facility] Neutrophil pct 52.7 % [facility] Comment: Interpretive Data Percent cell count reference ranges are not reported, since discordance with absolute values may lead to misinterpretation of CBC data. Current Interpretive Data was last revised on 2018. Imm gran pct 0.1 % [facility] Comment: Interpretive Data Percent cell count reference ranges are not reported, since discordance with absolute values may lead to misinterpretation of CBC data. Current Interpretive Data was last revised on 2018. Lymphocyte pct 29.6 % [facility] Comment: Interpretive Data Percent cell count reference ranges are not reported, since discordance with absolute values may lead to misinterpretation of CBC data. Current Interpretive Data was last revised on 2018. Monocyte pct 13.7 % [facility] Comment: Interpretive Data Percent cell count reference ranges are not reported, since discordance with absolute values may lead to misinterpretation of CBC data. Current Interpretive Data was last revised on 2018. Eosinophil pct 3.2 % [facility] Comment: Interpretive Data Percent cell count reference ranges are not reported, since discordance with absolute values may lead to misinterpretation of CBC data. Current Interpretive Data was last revised on 2018. Basophil pct 0.7 % [facility] Comment: Interpretive Data Percent cell count reference ranges are not reported, since discordance with absolute values may lead to misinterpretation of CBC data. Current Interpretive Data was last revised on 2018. Blood 05/02/2025 1:30 PM CDT 05/02/2025 1:44 PM CDT us Sue Simeon [employer]ER [employer] OPERATOR LAB BLOOD ORDERABLES Final Result [facility] [place] [address] * (ABNORMAL) CBC with auto differential (05/02/2025 1:30 PM CDT) WBC 6.80 3.80 - 9.90 K/cumm Hgb 11.3(L) 11.9 - 15.5 g/dL [facility] Hct 34.5(L) 35.6 - 45.5 % [facility] Plt 267 150 - 400 K/cumm [facility] MPV 9.8 9.1 - 12.3 fL [facility] RBC 3.69(L) 3.90 - 5.20 M/cumm [facility] MCV 93.5 81.3 - 96.4 fL [facility] MCH 30.6 27.1 - 33.3 pg [facility] MCHC 32.8 32.3 - 35.7 g/dL [facility] RDW CV 15.3(H) 11.1 - 14.9 % [facility] RDW SD 52.2(H) 35.7 - 48.1 fL [facility] NRBC abs 0.00 0.00 - 0.01 K/cumm [facility] Blood 05/02/2025 1:30 PM CDT 05/02/2025 1:44 PM CDT Sue Simeon BOOSTER PUMP OPERATOR LAB BLOOD ORDERABLES Final Result [facility] [place] [address] * (ABNORMAL) Comprehensive metabolic panel (05/02/2025 1:30 PM CDT) Sodium 138 135 - 145 mmol/L Potassium, pl 4.1 3.3 - 4.9 mmol/L [facility] Comment:Hemolyzed; Potassium value may be falsely elevated by as much as 0.3-0.5 mmol/L. Suggest redraw and reanalysis. Chloride 102 97 - 110 mmol/L [facility] CO2 26 22 - 32 mmol/L [facility] Anion gap 10 2 - 15 mmol/L [facility] BUN 9 6 - 25 mg/dL [facility] Creatinine 0.70 0.60 - 1.10 mg/dL [facility] Glucose 101 70 - 199 mg/dL [facility] Comment: Interpretive Data Fasting glucose >/= 126 [...] interpretive data was last revised 2022. Calcium 9.6 8.5 - 10.3 mg/dL [facility] Bilirubin, total 0.2 0.1 - 1.2 mg/dL [facility] Protein, pl 7.7 6.5 - 8.5 g/dL [facility] Albumin 4.0 3.5 - 5.0 g/dL [facility] Alk phos 102 40 - 130 Units/L [facility] ALT 71(H) 7 - 45 Units/L [facility] AST 59(H) 10 - 45 Units/L [facility] Comment:Hemolyzed; result ma y be falsely elevated Blood 05/02/2025 1:30 PM CDT 05/02/2025 1:44 PM CDT us Sue Simeon BOOSTER PUMP OPERATOR LAB BLOOD ORDERABLES Final Result [facility] [place] [address] * ECG 12 lead (05/02/2025 1:28 PM CDT) Pathologist [facility] Ventricular Rate EKG/Min 63 BPM [facility] Atrial Rate 63 BPM [facility] MD-Interval (MSEC) 160 ms [facility] QRS-Interval (MSEC) 88 ms [facility] QT-Interval (MSEC) 406 ms [facility] QTc 415 ms [facility] P [place] 29 degrees [facility] R [place] 38 degrees [facility] T [place] 43 degrees [facility] Diagnosis Normal sinus rhythm Normal ECG No previous ECGs available Confirmed by BRISSA SPAULDING M.D ([id number]) on 05/03/2025 11:04:27 AM [facility] 05/02/2025 1:28 PM CDT 05/03/2025 11:04 AM CDT us Sue Thompson Cailin BOOSTER PUMP OPERATOR ECG ORDERABLES Final Resu lt [facility] * eGFR (05/01/2025 11:00 AM CDT) eGFR >90 >=60 mL/min/1. 73 [...] interpretive data was last reviewed 2021. Blood 05/01/2025 11:0 0 AM CDT 05/01/2025 11:05 AM CDT us Felix Simmons MD LAB BLOOD ORDERABLES Final Result [facility] Department of Laboratories [place], [place] [id number] * (ABNORMAL) Differential, auto (05/01/2025 11:00 AM CDT) Neutrophil abs 3.22 1.50 - 6.50 K/cumm Comment:Testing performed by : [facility], [address] [place] [phone] Lymphocyte abs 1.52 0.80 - 3.30 K/cumm [facility] Comment:Testing performed by : [facility], [address] [place] [phone] Monocyte abs 0.84(H) 0.20 - 0.80 K/cumm [facility] Comment:Testing performed by : [facility], [address] [place], [place] [phone] Eosinophil abs 0.17 0.00 - 0.50 K/cumm [facility] Comment:Testing performed by : [facility], [address] [place] [address] Basophil abs 0.06 0.00 - 0.10 K/cumm [facility] Comment:Testing performed by : [facility], [address] [place] [address] Neutrophil pct 55.3 % [facility] Comment: Interpretive Data Percent cell count reference ranges are not reported, since discordance with absolute values may lead to misinterpretation of CBC data. Current Interpretive Data was last revised on 2018. Testing performed by: [facility], [address] [place] [phone] Lymphocyte pct 26.1 % [facility] Comment: Interpretive Data Percent cell count reference ranges are not reported, since discordance with absolute values may lead to misinterpretation of CBC data. Current Interpretive Data was last revised on 2018. Testing performed by: [facility], [address] [place] [phone] Monocyte pct 14.5 % [facility] Comment: Interpretive Data Percent cell count reference ranges are not reported, since discordance with absolute values may lead to misinterpretation of CBC data. Current Interpretive Data was last revised on 2018. Testing performed by: [facility], [address] [place] [phone] Eosinophil pct 3.0 % [facility] Comment: Interpretive Data Percent cell count reference ranges are not reported, since discordance with absolute values may lead to misinterpretation of CBC data. Current Interpretive Data was last revised on 2018. Testing performed by: [facility], [address] [place] [phone] Basophil pct 1.1 % [facility] Comment: Interpretive Data Percent cell count reference ranges are not reported, since discordance with absolute values may lead to misinterpretation of CBC data. Current Interpretive Data was last revised on 2018. Testing performed by: [facility], [address] [place] [phone] Blood 05/01/2025 11:0 0 AM CDT 05/01/2025 11:03 AM CDT us Felix Simmons MD LAB BLOOD ORDERABLES Final Result [facility] [place] [address] * (ABNORMAL) CBC with auto differential (05/01/2025 11:00 AM CDT) WBC 5.82 3.80 - 9.90 K/cumm Comment:Testing performed by : [facility], [address] [place] [address] Hgb 11.1(L) 11.9 - 15.5 g/dL [facility] Comment:Testing performed by : [facility], [address] [place] [address] Hct 33.0(L) 35.6 - 45.5 % [facility] Comment:Testing performed by : [facility], [address] [place] [address] Plt 239 150 - 400 K/cumm [facility] Comment:Testing performed by : [facility], [address] [place] [address] MPV 7.3 6.8 - 10.4 fL [facility] Comment:Testing performed by : [facility], [address] [place] [address] RBC 3.56(L) 3.90 - 5.20 M/cumm [facility] Comment:Testing performed by : [facility], [address] [place], [place] [phone] MCV 92.7 81.3 - 96.4 fL [facility] Comment:Testing performed by : [facility], [address] [place], [place] [phone] MCH 31.2 27.1 - 33.3 pg [facility] Comment:Testing performed by : [facility], [address] [place], [place] [phone] MCHC 33.6 32.3 - 35.7 g/dL [facility] Comment:Testing performed by : [facility], [address] [place], [place] [phone] RDW CV 16.6(H) 11.1 - 14.9 % [facility] Comment:Testing performed by : [facility], [address] [place], [place] [phone] NRBC abs 0.00 0.00 - 0.01 K/cumm [facility] Comment:Testing performed by : [facility], [address] [place], [place] [phone] Blood 05/01/2025 11:0 0 AM CDT 05/01/2025 11:03 AM CDT Felix Simmons MD LAB BLOOD ORDERABLES Final Result [facility] [place] [address] * (ABNORMAL) Comprehensive metabolic panel (05/01/2025 11:00 AM CDT) Sodium 143 135 - 145 mmol/L Potassium, pl 4.2 3.3 - 4.9 mmol/L [facility] Chloride 108 97 - 110 mmol/L [facility] CO2 27 22 - 32 mmol/L [facility] Anion gap 8 2 - 15 mmol/L [facility] BUN 9 6 - 25 mg/dL [facility] Creatinine 0.69 0.60 - 1.10 mg/dL [facility] Glucose 78 70 - 199 mg/dL [facility] Comment: Interpretive Data Fasting glucose >/= 126 [...] classification and Diagnosis of Diabetes Diabetes Care 202; 46: S19-S40. Current interpretive data was last revised 2022. Calcium 9.4 8.5 - 10.3 mg/dL [facility] Bilirubin, total 0.2 0.1 - 1.2 mg/dL [facility] Protein, pl 7.2 6.5 - 8.5 g/dL [facility] Albumin 3.9 3.5 - 5.0 g/dL [facility] Alk phos 96 40 - 130 Units/L [facility] ALT 67(H) 7 - 45 Units/L [facility] AST 47(H) 10 - 45 Units/L [facility] Blood 05/01/2025 11:0 0 AM CDT 05/01/2025 11:05 AM CDT Felix Simmons MD LAB BLOOD ORDERABLES Final Result [facility] [place] [address] from Last 3 Months Insurance [employer] OOS BLUE [facility]ESS [facility] H[facility]/PPO Address: [address] [address] [place] [address] [email or web address] ACCESS [employer] Advance Directives For more information, please contact: [phone] * Full Code (Latest Code Status on File) Date Activated Date Inactivated Comments 07/11/2025 8:55 AM 07/12/2025 8:48 PM * Full Code Date Activated Date Inactivated Comments 07/09/2025 10:31 PM 07/11/2025 8:55 AM * Full Code Date Activated Date Inactivated Comments 03/07/2025 11:28 AM 03/09/2025 7:28 PM * Full Code Date Activated Date Inactivated Comments 11/16/2024 7:25 AM 11/17/2024 4:49 AM * Full Code Date Activated Date Inactivated Comments 10/31/2024 5:11 AM 11/02/2024 5:42 PM Healthcare Agents on File Name Relationship Healthcare Agent [facility] Communication Rome Alfaro Daughter Health Care Agent Care Teams [employer] Relationship Specialty Start Date End Date Keshav Spears DO [address] [place] [address] PCP - General Family Medicine 11/01/24 Keshav Spears DO [address] [place] [address] 10/31/24 Felix Simmons MD [address] [place] [address] Consulting Physician Medical Oncology 11/28/24
--- OUTSIDE RECORDS SUMMARY | 2025-07-25 17:46 | XMS_ITS | Encounter Summary ---
Author Organization [facility] Address [address] [place] [id number] Care Team Providers Care Tub Operator Name Role Phone Keshav Spears Primary Care Provider + Encounter Details Date Type Department Care Team (Late st Contact Info) Description 10/02/2024 [email or web address] Message Enc [facility] Multispecialty Care - [address], [address] [place] [address] Hannah, [facility] Provider 230 Social History Tobacco Use Types Packs/Day Years [...] Sex Assigned at Female 10/24/2024 1:30 PM SUBSTATION ELECTRICIAN Legal Sex Female 12:10 PM SUBSTATION ELECTRICIAN Gender Identity Female 10/24/2024 1:30 PM SUBSTATION ELECTRICIAN Sexual Orientation Not on file Occupation Industry [...] documented as of this encounter Care Teams Tub Operator Relationship Specialty Start Date End Date Keshav Spears DO [address] [place] [id number] PCP - General FAMILY PRACTICE 12/11/19 documented as of this encounter
[2025-07-25 18:05] VITALS: BP 126/60; PULSE 67; RESP 15; TEMP 36.4; O2SAT 98
== END 2025-07-25 18:06 | disposition home or self-care (01) ==
LOC: ANHED 17:44
PROVIDERS: Emergency Provider Emergency Medicine; PCP Student in an Organized Health Care Education/Training Program
DX: S91.115A Laceration without foreign body of left lesser toe(s) without damage to nail, initial encounter (principal); Z85.828 Personal history of other malignant neoplasm of skin; W20.8XXA Other cause of strike by thrown, projected or falling object, initial encounter
CPT/HCPCS: 12001; 73660; 99283